=== PATIENT | female | born 1965 | race Caucasian/White ===

== ENCOUNTER 2016-08-30 17:39 | Inpatient (IN) | payer OTHER ==
[~2016-08-30] VITALS: Ht 142.2 cm; Wt 37.0 kg
[~2016-08-30 17:39] MED LIST: ACET-2047 PO; ADV10050 INH; ALPR0.25 PO; CALC200T PO; CIPR500T4 PO; DOCU-144 PO; FAMO20TA18 PO; FOLI-49 PO; HYDR-902 PO; IPRA3AMP INHALATION; LANT3I SC; LORA10TA3 PO; LYR75 PO; MEGE40TA17 PO; METO-448 PO; MONT10TA24 PO; ONDA-43 PO; PHEN-537 PO; SERT100T PO
[2016-08-30] MEDS ORDERED: SOD CHLORIDE 0.9% 500 ML IV STA (21:27)
[2016-08-30 21:45] VITALS: TEMP 97.6
[2016-08-30] MEDS ORDERED: morphine 4 MG/ML VIAL IV STA (21:52)
[2016-08-30] MEDS ORDERED: ONDANSETRON 4 MG INJ IV STA (21:52)
[2016-08-30 22:12] LABS: ADD SCAN DIFF NO
[2016-08-30 22:15] LABS: BASOPHIL # 0.1 10^3/ul (0.0-0.1); EOSINOPHILS # 0.2 10^3/ul (0.0-0.5); EOSINOPHILS % 2.5 % (0.0-7.0); HEMATOCRIT 31.5 % (37.0-47.0); LYMPHOCYTES # 2.1 10^3/ul (0.8-2.9); LYMPHOCYTES % 35.4 % (15.0-51.0); MEAN CORPUSCULAR HEMOGLOBIN 31.4 pg (29.0-33.0); MEAN CORPUSCULAR HGB CONC 34.9 g/dl (32.0-37.0); MEAN PLATELET VOLUME 9.4 fl (7.4-10.4); MONOCYTE # 0.6 10^3/ul (0.3-0.9); MONOCYTES % 10.3 % (0.0-11.0); NEUTROPHILS % 50.5 % (39.0-77.0); PLATELET COUNT 232 10^3/UL (140-415); RED CELL DISTRIBUTION WIDTH 12.2 % (11.5-14.5); RETICULOCYTE COUNT % 2.8 % (0.5-1.5); WHITE BLOOD COUNT 5.9 10^3/ul (4.8-10.8)
[2016-08-30 22:26] LABS: POTASSIUM 3.5 mmol/L (3.5-5.1)
[2016-08-30 22:28] LABS: CREATININE 1.03 mg/dl (0.44-1.00)
[2016-08-30 22:29] LABS: CALCIUM 9.5 mg/dl (8.4-10.2)
[2016-08-30 22:48] LABS: ADD UMIC YES; URINE BILIRUBIN (Dip) NEGATIVE (NEGATIVE); URINE BLOOD (Dip) 2+ (NEGATIVE); URINE KETONES (Dip) NEGATIVE (NEGATIVE); URINE LEUKOCYTE ESTERASE (Dip) 2+ (NEGATIVE); URINE NITRITE (Dip) NEGATIVE (NEGATIVE); URINE TOTAL PROTEIN (Dip) TRACE (NEGATIVE); URINE UROBILINOGEN (Dip) 0.2 E.U./dL (0.1-1.0)
[2016-08-30 22:55] LABS: URINE COLOR YELLOW (YELLOW)
[2016-08-30 23:04] LABS: IRON 57 ug/dl (35-150)
[2016-08-30 23:10] LABS: BACTERIA,URINE MANY; TRANSITIONAL EPI CELLS,URINE MODERATE
[2016-08-30 23:13] LABS: TOTAL IRON BINDING CAPACITY 263 ug/dl (241-421)
[2016-08-31] MEDS ORDERED: ONDANSETRON 4 MG INJ IV STA (00:25)
--- NOTE | 2016-08-31 01:30 | RADRPT ---
PROCEDURE: CT ABDOMEN/PELVIS WITHOUT CONTRAST CLINICAL INDICATION: 50-year-old female with abdominal pain and febrile. TECHNIQUE: The study was performed utilizing a GE [employer] VCT 64-slice CT scanner. Direct axia l sections were obtained through the abdomen and pelvis without the use of intravenous contrast mate rial. Sagittal and coronal reformations were obtained. One or more of the following dose reduction t echniques were utilized: automated exposure control, adjustment of the mA and/or kV according to pat ient's size or use of iterative reconstruction technique. The images were reviewed on a PACS workst [employer]. CTD/vol = 4.0 mGy; Total Exam DLP = 215.8 mGy-cm. COMPARISON: None. FINDINGS: Coronary artery calcifications are visualized. There is trace bibasilar subsegmental atelectasis. There is no evidence for significant pleural effusion. The liver has a normal size and contour with out focal areas of abnormal density. No intrahepatic nor extrahepatic biliary ductal dilatation is s een. The gallbladder demonstrates no wall thickening nor pericholecystic fluid. No biliary stones ar e evident. The pancreas is without areas of abnormal attenuation. The spleen is identified and has a normal size without abnormal density. The adrenal glands are unremarkable. The kidneys are without abnormal density. No hydroureteronephrosis nor nephroureterolithiasis is evident. The urinary bladd er contains urine. There is mild fecalization of the small bowel and focal dilatation. Mild retaine d stool is seen within the transverse colon. The appendix is visualized and is without abnormal thi ckening or surrounding inflammatory reaction. The uterus is unremarkable. The aortoiliac vessels are extensively calcified but without aneurysmal dilatation. The osseous structures are intact. IMPRESSION: 1. No CT evidence for obstructive uropathy or renal calculi. 2. Mild fecalization of the small bowel and focal dilatation without gross bowel obstruction. 3. No CT evidence for appendicitis. 4. Extensive vascular calcifications. .Josh Lyle MD, Date Time Electronically viewed and signed by .Josh Lyle MD, MD on 08/31/2016 01:29 .M/
[2016-08-31] MEDS ORDERED: CEFTRIAXONE 1 GM/50 ML (PMX) 50 ML IVPB ONE (02:00)
--- NOTE | 2016-08-31 02:02 | ERA ---
ER Documentation Chief Complaint Date/Time DATE: 08/31/16 TIME: 02:01 Chief Complaint GEBNERALIZED WEAKNESS X 1 WEEK; SENT FOR POSSIBLE BLOOD TRANS HPI This is a 50-year-old female with generalized weakness for 1 week. Sent for possible blood transfusion. Patient says she has been feeling weaker and has had urgency frequency urination. Patient has history of multiple pyelonephritis in the past ROS All systems reviewed and are negative except as per history of present illness. Medications Home Meds Active Scripts Metoprolol Tartrate* (Lopressor*) 25 Mg Tab, 12.5 MG PO BID, #60 TAB Prov:BARB WHITE MD 05/30/16 Phenazopyridine Hcl* (Pyridium*) 100 Mg Tab, 100 MG PO TID, #15 TAB Prov:BARB WHITE MD 05/30/16 Ciprofloxacin Hcl* (Ciprofloxacin Hcl*) 500 Mg Tablet, 500 MG PO BID, #14 TAB Prov:BARB WHITE MD 05/30/16 Salmeterol Xinaf-Fluticasone* (Advair*) 100/50 Diskus Inhaler, 1 INH INH BID for 30 Days Prov:DEJAN JEFFERSON 01/27/16 Montelukast Sodium* (Montelukast Sodium*) 10 Mg Tablet, 10 MG PO QHS for 30 Days , TAB Prov:DEJAN JEFFERSON 01/27/16 Insulin Glargine* (Lantus*) 100 Unit/Ml Soln, 17 UNIT SC QPM for 30 Days Prov:DEJAN JEFFERSON 01/27/16 Insulin Glargine* (Lantus*) 100 Unit/Ml Soln, 17 UNIT SC QAM for 30 Days Prov:DEJAN JEFFERSON 01/27/16 Ondansetron Hcl* (Zofran*) 4 Mg Tab, 4 MG PO Q4H Y for NAUSEA AND OR VOMITING, # 30 TAB Prov:DEJAN JEFFERSON 01/27/16 Docusate Sodium* (Colace*) 100 Mg Capsule, 100 MG PO BID Y for CONSTIPATION for 30 Days, #60 CAP Prov:URI GARRDIO S. 12/08/15 Calcium Carbonate* (Tums*) 500 Mg Tab.chew, 1000 MG PO Q4 Y for HEARTBURN for 30 Days, TAB.CHEW Prov:URI GARRIDO 12/08/15 Reported Medications Pregabalin* (Lyrica*) 75 Mg Capsule, 75 MG PO BID, CAP 05/29/16 Famotidine* (Famotidine*) 20 Mg Tablet, 20 MG PO DAILY, #30 TAB 05/29/16 Hydrocodone/Acetaminophen ([place] 10-325 Tablet) 1 Each Tablet, 1 EACH PO Q6 Y for PAIN, TAB 05/29/16 Sertraline Hcl* (Zoloft*) 100 Mg Tablet, 100 MG PO DAILY, #30 TAB 05/29/16 Megestrol Acetate* (Megestrol Acetate*) 40 Mg Tablet, 40 MG PO DAILY, TAB 05/29/16 Folic Acid* (Folic Acid*) 1 Mg Tablet, 1 MG PO DAILY, TAB 05/29/16 Alprazolam* (Xanax*) 0.25 Mg Tablet, 0.25 MG PO TID Y for ANXIETY, TAB 12/02/15 Ipratropium-Albuterol (Ipratropium-Albuterol) 0.5-3 Mg/3 Ml Ampul.neb, 3 ML INHALATION Q4 Y for SHORTNESS OF BREATH, #30 VIAL 12/02/15 Acetaminophen* (Acetaminophen*) 650 Mg Tablet, 650 MG PO Q4 Y for FEVER, #30 TAB 12/02/15 Loratadine* (Loratadine*) 10 Mg Tablet, 10 MG PO DAILY, #30 TAB 12/02/15 Allergies Allergies: Coded Allergies: No Known Allergy (Unverified , 12/18/15) PMhx/Soc History of Surgery: Yes (see note) Anesthesia Reaction: No Hx Neurological Disorder: No (neuropathy) Hx Respiratory Disorders: Yes (asthma) Hx Cardiac Disorders: Yes (irrigular heart rate) Hx Psychiatric Problems: Yes (Anxiety, depression) Hx Miscellaneous Medical Probl: Yes (see note) Hx Alcohol Use: No Hx Substance Use: No Hx Tobacco Use: No Smoking Status: Never smoker Physical Exam Vitals Vital Signs Date Time Temp Pulse Resp B/P Pulse Ox O2 Delivery O2 Flow Rate FiO2 08/30/16 21:45 97.6 103 20 151/86 100 Room Air 08/30/16 17:42 98.0 78 18 117/85 99 Physical Exam Const: [] Head: Atraumatic Eyes: Normal Conjunctiva ENT: Normal External Ears, Nose and Mouth. Neck: Full range of motion..~ No meningismus. Resp: Clear to auscultation bilaterally Cardio: Regular rate and rhythm, no murmurs Abd: Soft, non tender, non distended. Normal bowel sounds Skin: No petechiae or rashes Back: No midline or flank tenderness Ext: No cyanosis, or edema Neur: Awake and alert Psych: Normal Mood and Affect Result Diagram: 08/30/16214408/30/162144 Results 24 hrs Laboratory Tests Test 08/30/16 21:45 08/30/16 22:20 Absolute Reticulocyte Count 0.097X10^6 Anion Gap 19 Basophils # 0.110^3/ul Basophils % 1.0% Blood Urea Nitrogen 29mg/dl Calcium Level 9.5mg/dl Carbon Dioxide Level 25mmol/L Chloride Level 101mmol/L Creatinine 1.03mg/dl Eosinophils # 0.210^3/ul Eosinophils % 2.5% Ferritin 851.0ng/ml Glucose Level 242mg/dl Hematocrit 31.5% Hemoglobin 11.0g/dl Iron Level 57ug/dl Lactate Dehydrogenase 439IU/L Lymphocytes # 2.110^3/ul Lymphocytes % 35.4% Mean Corpuscular Hemoglobin 31.4pg Mean Corpuscular Hemoglobin Concent 34.9g/dl Mean Corpuscular Volume 90.0fl Mean Platelet Volume 9.4fl Monocytes # 0.610^3/ul Monocytes % 10.3% Neutrophils # 3.010^3/ul Neutrophils % 50.5% Nucleated Red Blood Cells # 0.010^3/ul Nucleated Red Blood Cells % 0.0/100WBC Percent Iron Saturation 22% SAT Percent Reticulocyte Count 2.8% Platelet Count 81201^3/UL Potassium Level 3.5mmol/L Red Blood Count 3.5010^6/ul Red Cell Distribution Width 12.2% Sodium Level 141mmol/L Total Iron Binding Capacity 263ug/dl White Blood Count 5.910^3/ul Urine Bacteria MANY Urine Bilirubin NEGATIVE Urine Clarity CLOUDY Urine Color YELLOW Urine Glucose 0.5%% Urine Hemoglobin 2+ Urine Ketones NEGATIVE Urine Leukocyte Esterase 2+ Urine Microscopic RBC 2-5/HPF Urine Microscopic WBC >200/HPF Urine Nitrite NEGATIVE Urine Specific [place] 1.020 Urine Total Protein TRACE Urine Transitional Epithelial Cells MODERATE Urine Urobilinogen 0.2 E.U./dL Urine Yeast MANY Urine pH 5.5 Current Medications Medications (Trade) Dose Ordered Sig/Muna Route PRN Reason Start Time Stop Time Status Last Admin Dose Admin Sodium Chloride (NS) 500 ml @ 500 mls/hr Q1H STAT IV 08/30/16 21:27 08/30/16 22:26 DC 08/30/16 21:53 Morphine Sulfate (morphine) 4 mg ONCE STAT IV 08/30/16 21:52 08/30/16 22:05 DC 08/30/16 22:13 Ondansetron HCl (Zofran Inj) 4 mg ONCE STAT IV 08/30/16 21:52 08/30/16 22:08 DC 08/30/16 22:12 Ondansetron HCl 4 mg 4 mg ONCE STAT IV 08/31/16 00:25 08/31/16 00:27 DC 08/31/16 00:33 Ceftriaxone Sodium (Rocephin) 50 ml @ 100 mls/hr ONCE ONCE IVPB 08/31/16 02:00 08/31/16 02:29 Procedures/MDM EKG: Rate/Rhythm: Normal Sinus Rhythm QRS, ST, T-waves: No changes consistent w/ acute ischemia Impression: No evidence of ischemia or arrhythmia Chest X-ray 1V Interpreted by me: Soft Tissue: No acute abnormalities Bones: No acute abnormalities Mediastinum/Cardiac Silhouette/Lungs: No acute abnormalities Medical decision-making: This is a very pleasant female looks to be early pyelonephritis. Given her multiple comorbidities, patient will be admitted for intravenous antibiotics to the hospitalist. Departure Diagnosis: Primary Impression: Acute weakness Additional Impression: Acute pyelonephritis Condition: Serious COREY CARMallory Aug 31, 2016 02:02
[2016-08-31 03:00] VITALS: BP 141/78; PULSE 105; RESP 18
[2016-08-31 03:17] VITALS: Ht 142.2 cm; Wt 37.0 kg
[2016-08-31] MEDS ORDERED: ONDANSETRON 4 MG INJ IV PRN ×2 (03:30→10:00)
[2016-08-31] MEDS ORDERED: ALPRAZOLAM 0.25 MG TAB PO PRN (03:30)
[2016-08-31] MEDS ORDERED: NITROGLYCERIN (SL) 0.4 MG TAB SL PRN (03:30)
[2016-08-31] MEDS ORDERED: ACETAMINOPHEN 325 MG TAB PO PRN ×2 (03:30)
[2016-08-31] MEDS ORDERED: CALCIUM CARBONATE 500 MG CHEW TAB PO PRN (03:30)
[2016-08-31] MEDS ORDERED: MAGNESIUM HYDROXIDE 30ML CUP PO PRN (03:30)
[2016-08-31] MEDS ORDERED: DEXTROSE 50% 50 ML SYRINGE IV PRN ×2 (03:30)
[2016-08-31] MEDS ORDERED: GLUCAGON 1 MG INJ IM PRN (03:30)
[2016-08-31] MEDS ORDERED: NACL 0.9% 3 ML SYG IV SCH (03:30)
[2016-08-31] MEDS ORDERED: hydrALAzine 20 MG INJ IV PRN (03:30)
[2016-08-31] MEDS ORDERED: morphine 2 MG INJ IV PRN (03:30)
[2016-08-31] MEDS ORDERED: ALBUTEROL/IPRATROPIUM (NEB) 3 ML AMP HHN PRN (03:30)
[2016-08-31] MEDS ORDERED: DOCUSATE SODIUM 100 MG CAP PO PRN (03:30)
[2016-08-31] MEDS ORDERED: GLUCOSE GEL 15 GRAM TUBE BUCCAL PRN (03:30)
[2016-08-31] MEDS ORDERED: NA PHOSPHATE/BIPHOS 133 ML ENEMA PR PRN (03:30)
[2016-08-31] MEDS ORDERED: HYDROCODONE/APAP (5/325) TAB PO PRN (03:30)
[2016-08-31] MEDS ORDERED: LORAZEPAM 2 MG INJ IV PRN (03:30)
[2016-08-31] MEDS ORDERED: GLUCOSE GEL 15 GRAM TUBE PO PRN ×2 (03:30)
[2016-08-31] MEDS: SOD CHLORIDE 0.9% 1,000 ML IV SCH ×3 (03:47→23:01)
[2016-08-31] MEDS: FLUCONAZOLE 100 MG/NS (PMX) 50 ML IVPB SCH (03:53)
[2016-08-31] MEDS: HYDROCODONE/APAP (5/325) TAB PO PRN (03:53)
[2016-08-31] MEDS ORDERED: INSULIN ASPART [NOVOLOG] 3 ML PEN SC SCH ×2 (05:00→07:20)
--- NOTE | 2016-08-31 05:30 | HP ---
DATE OF ADMISSION: 08/31/2016 IDENTIFICATION: A 50-year-old female. CHIEF COMPLAINT: Generalized weakness x1 week. HISTORY OF PRESENT ILLNESS: A 50-year-old female with past medical history of breast cancer status post lumpectomy in the past, hypertension, type 2 diabetes, asthma, diabetic neuropathy, anorexia an d anxiety and depression who has been having weakness for about 1 week sort of generalized in nature . She has also had urinary frequency and urgency as well. The patient has had multiple UTIs in the past as well. Apparently, she was prescribed antibiotics as an outpatient to treat the UTI, but th e symptoms have not improved, so she decided to come in. No upper or lower GI bleeding, no chest pa in and no shortness of breath. When she came in today to the ER, she had a UA performed that showed 2+ leukocyte esterase positive and many bacteria, and a CT abdomen and pelvis was performed that sh owed no obstructive uropathy or renal calculi and no evidence of any appendicitis. PAST MEDICAL HISTORY: As stated above. ALLERGIES: NO KNOWN DRUG ALLERGIES. HOME MEDICATIONS: 1. Loratadine 10 mg daily. 2. Ciprofloxacin 500 mg b.i.d. 3. Megace 40 mg daily. 4. Ipratropium/albuterol inhaled q.4 hours p.r.n. 5. Lopressor 12.5 mg b.i.d. 6. Tylenol 650 q.4 hours p.r.n. 7. Xanax 0.25 mg t.i.d. p.r.n. 8. [place] 10/325 q. 6 p.r.n. 9. Lyrica 75 mg b.i.d. 10. Zoloft 100 mg daily. 11. Singulair 10 mg at bedtime. 12. Advair 100/50 inhaled b.i.d. 13. Tums 100 mg q.4 hours p.r.n. 14. Colace 100 mg b.i.d. p.r.n. 15. Famotidine 20 mg daily. 16. Zofran 4 mg q.4 p.r.n. 17. Lantus 17 units in the morning and 17 units at night. 18. Pyridium 100 mg t.i.d. 19. Folic acid 1 mg daily. PAST SURGICAL HISTORY: Lumpectomy in the past for breast cancer, in the past, a right marisol lux amputation in the past, laser surgery for her eyes in the past. SOCIAL HISTORY: No smoking, drinking, or IV drug abuse. FAMILY HISTORY: Noncontributory. PHYSICAL EXAMINATION: VITAL SIGNS: Today, T-max 98.0, pulse 78 to 103, respirations 18 to 21, blood pressure 117 to 151 s ystolic over 85 to 86 diastolic, saturating 100% on room air. GENERAL: The patient is lying in bed, in no acute distress. HEENT: Pupils equal, round, react to light. Extraocular muscles intact. NECK: Supple, no thyromegaly. LUNGS: Clear to auscultation bilaterally. CARDIOVASCULAR: S1, S2 heard. No rubs or gallops. ABDOMEN: Soft, nontender, nondistended. Normal bowel sounds. No rebound or guarding. MUSCULOSKELETAL: No lower extremity edema bilaterally. NEUROLOGIC: No focal deficits. LABORATORIES: CBC is normal. The sodium 141, potassium 3.4, chloride 101, CO2 of 25, BUN 29, creat inine 1.03, glucose 242. Ferritin is [address] abdomen and pelvis results. ASSESSMENT AND PLAN: A 50-year-old female coming in with generalized weakness with signs of urinary tract infection and pyelonephritis. 1. Generalized weakness most likely secondary to urinary tract infection and pyelonephritis. Lookliliya locke back at the records in May 2016, she had Sissy glabrata urinary tract infection at that [place] and back in December 2015, she had a history of Proteus multidrug resistant urinary tract infection a t that time, so will admit her to med/surg floor, put her on broad spectrum antibiotics including an tifungal and Zosyn. Based on the prior sensitivities, we will consider getting infectious disease c onsult as well. 2. History of breast cancer, no present issues. Continue to monitor for now. 3. History of asthma. She is on DuoNeb p.r.n. No signs of any shortness of breath. 4. History of type 2 diabetes. Continue Lantus and sliding scale insulin. Check A1c. 5. History of hypertension. Blood pressure stable. Continue current medications. Also, check a T SH and lipid panel. 6. History of anxiety and depression. She is on Ativan p.r.n. 7. Gastrointestinal prophylaxis. She is on famotidine. 8. Deep venous thrombus prophylaxis, heparin subQ. Dictated By: URI GODDARD Conf#: [id number] DID#: [id number]
[2016-08-31] MEDS: PIPER-TAZO 3.375 GM IV (PMX) 100 ML IVPB SCH ×4 (06:15→23:24)
[2016-08-31 07:59] VITALS: BP 99/53; RESP 16
[2016-08-31] MEDS: METOPROLOL 25 MG TAB PO SCH ×2 (09:00→21:22)
[2016-08-31] MEDS: PREGABALIN 75 MG CAP PO SCH ×2 (09:00→21:21)
[2016-08-31] MEDS: SALMETEROL/FLUTICASONE 100/50 INHA INH SCH ×2 (09:00→21:21)
[2016-08-31] MEDS: Insulin NOVOLOG SS MILD Algorithm (SS with meals and bedtime) SC SCH ×4 (09:09→21:00)
[2016-08-31] MEDS: INSULIN GLARGINE [LANtus] 3 ML PEN SC SCH (09:10)
[2016-08-31] MEDS: HEPARIN 5,000 UNIT/0.5 ML SYG SC SCH ×2 (09:11→21:27)
[2016-08-31 10:06] LABS: ADD UMIC YES; URINE BILIRUBIN (Dip) NEGATIVE (NEGATIVE); URINE BLOOD (Dip) 1+ (NEGATIVE); URINE COLOR LT. YELLOW (YELLOW); URINE GLUCOSE (Dip) NEGATIVE (NEGATIVE); URINE KETONES (Dip) NEGATIVE (NEGATIVE); URINE LEUKOCYTE ESTERASE (Dip) 3+ (NEGATIVE); URINE NITRITE (Dip) NEGATIVE (NEGATIVE); URINE TOTAL PROTEIN (Dip) TRACE (NEGATIVE); URINE UROBILINOGEN (Dip) 0.2 E.U./dL (0.1-1.0)
[2016-08-31 10:36] LABS: SQUAMOUS EPITHELIAL CELL,UR FEW
--- NOTE | 2016-08-31 12:10 | PN ---
Date/Time of Note Date/Time of Note DATE: 08/31/16 TIME: 12:06 Assessment/Plan VTE Prophylaxis VTE Prophylaxis Intervention: SCD's Lines/Catheters [facility] Peripheral IV Urinary Cath still in place: No Assessment/Plan Chief Complaint/Hosp Course ASSESSMENT AND PLAN: 1. Pyelonephritis. with history of Sissy glabrata and Proteus multidrug resistant urinary tract infection continue broad spectrum antibiotics including antifungal and Zosyn. Based on the prior sensitivities, we will consider getting infectious disease consult as well. 2. History of breast cancer, no present issues. Continue to monitor for now. Patient is scheduled to follow up with oncology as outpatient 3. History of asthma. She is on DuoNeb p.r.n. No signs of any shortness of breath. 4. History of type 2 diabetes. Continue Lantus and sliding scale insulin. Low -carb diet 5. History of hypertension. Blood pressure stable. Continue current medications. 6. History of anxiety and depression. She is on Ativan p.r.n. 7. Gastrointestinal prophylaxis. She is on famotidine. 8. Deep venous thrombus prophylaxis, heparin subQ. We will continue monitor patient closely for recommendation management treatment as clinical course Problems: Subjective 24 Hr Interval Summary Free Text/Dictation Patient continues to complain of having right flank pain Denies of any chest pain or shortness of breath Tolerating oral intake Exam/Review of Systems Vital Signs Vitals Vital Signs Date Time Temp Pulse Resp B/P Pulse Ox O2 Delivery O2 Flow Rate FiO2 08/31/16 07:59 98.0 85 16 99/53 97 08/31/16 03:00 Room Air Intake and Output 08/30/16 08/30/16 08/31/16 15:00 23:00 07:00 Intake Total 300 ml Output Total 300 ml Balance 0 ml Exam General: The patient is well-developed, Not in acute distress. HEENT: Atraumatic, normocephalic. The pupils are equal and round . Neck: Supple with full range of motion. Chest: Normal expansion of the thorax during inspiration Lungs: Clear to auscultation bilaterally Heart: Normal S1-S2, Regular rhythm and rate. Abdomen: Soft , right flank pain, nondistended , bowel sounds are present. Extremities: Normal to inspection, no edema no cyanosis, status post right foot first toe amputation (chronic) Neurologic: Normal mental status,The patient is awake, alert and oriented . Results Result Diagram: 08/30/16214408/30/162144 Results 24 hrs Laboratory Tests Test 08/30/16 21:45 08/30/16 22:20 08/31/16 04:30 08/31/16 04:31 Absolute Reticulocyte Count 0.097 Anion Gap 19 H Basophils # 0.1 Basophils % 1.0 Blood Urea Nitrogen 29 H Calcium Level 9.5 Carbon Dioxide Level 25 Chloride Level 101 Creatinine 1.03 H Eosinophils # 0.2 Eosinophils % 2.5 Ferritin 851.0 H Glucose Level 242 H Hematocrit 31.5 L Hemoglobin 11.0 L Iron Level 57 Lactate Dehydrogenase 439 Lymphocytes # 2.1 Lymphocytes % 35.4 Mean Corpuscular Hemoglobin 31.4 Mean Corpuscular Hemoglobin Concent 34.9 Mean Corpuscular Volume 90.0 Mean Platelet Volume 9.4 Monocytes # 0.6 Monocytes % 10.3 Neutrophils # 3.0 Neutrophils % 50.5 Nucleated Red Blood Cells # 0.0 Nucleated Red Blood Cells % 0.0 Percent Iron Saturation 22 Percent Reticulocyte Count 2.8 H Platelet Count 232 Potassium Level 3.5 Red Blood Count 3.50 L Red Cell Distribution Width 12.2 Sodium Level 141 Total Iron Binding Capacity 263 White Blood Count 5.9 # Urine Bacteria MANY Urine Bilirubin NEGATIVE Urine Clarity CLOUDY Urine Color YELLOW Urine Glucose 0.5% H Urine Hemoglobin 2+ H Urine Ketones NEGATIVE Urine Leukocyte Esterase 2+ H Urine Microscopic RBC 2-5 Urine Microscopic WBC >200 Urine Nitrite NEGATIVE Urine Specific [place] 1.020 Urine Total Protein TRACE Urine Transitional Epithelial Cells MODERATE Urine Urobilinogen 0.2 E.U./dL Urine Yeast MANY Urine pH 5.5 Bedside Glucose 186 Free Thyroxine 1.23 Test 08/31/16 07:05 08/31/16 08:43 Urine Bilirubin NEGATIVE Urine Clarity CLEAR Urine Color LT. YELLOW Urine Glucose NEGATIVE Urine Hemoglobin 1+ H Urine Ketones NEGATIVE Urine Leukocyte Esterase 3+ H Urine Microscopic RBC 2-5 Urine Microscopic WBC 25-50 Urine Nitrite NEGATIVE Urine Specific [place] 1.015 Urine Squamous Epithelial Cells FEW Urine Total Protein TRACE Urine Urobilinogen 0.2 E.U./dL Urine Yeast MODERATE Urine pH 5.5 Bedside Glucose 144 Medications Medications Current Medications Ondansetron HCl (Zofran Inj) 4 mg Q6H PRN IV NAUSEA AND/OR VOMITING; Start at 03:30 Acetaminophen (Tylenol Tab) 650 mg Q6H PRN PO PAIN LEVEL 1-3 OR FEVER; Start at 03:30 Acetaminophen/ Hydrocodone Bitart ([place] (5/325)) 1 tab Q6H PRN PO MODERATE PAIN LEVEL 4-6 Last administered on 08/31/16 03:53; Admin Dose 1 TAB; Start at 03:30 Acetaminophen/ Hydrocodone Bitart ([place] (5/325)) 2 tab Q6H PRN PO SEVERE PAIN LEVEL 7-10; Start 08/31/16 at 03:30 Morphine Sulfate (morphine) 2 mg Q4H PRN IV SEVERE PAIN LEVEL 7-10; Start 08/31 at 03:30 Docusate Sodium (Colace) 100 mg Q12H PRN PO CONSTIPATION; Start 08/31/16 at 03: 30 Magnesium Hydroxide (Milk Of Mag) 30 ml DAILY PRN PO CONSTIPATION; Start at 03:30 Sodium Biphosphate/ Sodium Phosphate (Fleet Enema) 133 ml DAILY PRN ID CONSTIPATION; Start 08/31/16 at 03:30 Heparin Sodium (Porcine) (Heparin (5000 Units/0.5 ml)) 5,000 unit Q12 SC Last administered on 08/31/16 09:11; Admin Dose 5,000 UNIT; Start 08/31/16 at 09:00 Lorazepam 0.5 mg 0.5 mg Q6H PRN IV ANXIETY; Start 08/31/16 at 03:30 Sodium Chloride 1,000 ml @ 100 mls/hr Q10H IV Last administered on 08/31/16 03:47; Admin Dose 100 MLS/HR; Start 08/31/16 at 03:01 Piperacillin Sod/ Tazobactam Sod (Zosyn 3.375gm/ 100 ml (Pmx)) 100 ml @ 200 mls /hr Q6 IVPB Last administered on 08/31/16 06:15; Admin Dose 200 MLS/HR; Start 08/31/16 at 06:00 Hydralazine HCl (Apresoline) 10 mg Q6H PRN IV ELEVATED BLOOD PRESSURE; Start at 03:30 Clonidine (Catapres) 0.1 mg Q6H PRN PO ELEVATED BLOOD PRESSURE; Start 08/31/16 at 03:30 Nitroglycerin (Nitroglycerin (Sl Tab) 0.4 Mg) 1 tab Q5M PRN SL ANGINA; Start at 03:30 Acetaminophen (Tylenol Tab) 650 mg Q4 PRN PO FEVER; Start 08/31/16 at 03:30 Alprazolam (Xanax) 0.25 mg TID PRN PO ANXIETY; Start 08/31/16 at 03:30 Calcium Carbonate (Tums) 1,000 mg Q4 PRN PO HEARTBURN; Start 08/31/16 at 03:30 Famotidine (Pepcid) 20 mg DAILY PO ; Start 08/31/16 at 09:00 Folic Acid (Folic Acid) 1 mg DAILY PO ; Start 08/31/16 at 09:00 Insulin Glargine (Lantus) 17 unit QAM SC Last administered on 08/31/16 09:10; Admin Dose 17 UNIT; Start 08/31/16 at 09:00 Insulin Glargine (Lantus) 17 unit QPM SC ; Start 08/31/16 at 21:00 Loratadine (Claritin) 10 mg DAILY PO ; Start 08/31/16 at 09:00 Megestrol Acetate (Megace) 40 mg DAILY PO ; Start 08/31/16 at 09:00 Metoprolol Tartrate (Lopressor) 12.5 mg BID PO ; Start 08/31/16 at 09:00 Montelukast Sodium (Singulair) 10 mg QHS PO ; Start 08/31/16 at 21:00 Phenazopyridine HCl (Pyridium) 100 mg TID PO ; Start 08/31/16 at 09:00 Pregabalin (Lyrica) 75 mg BID PO ; Start 08/31/16 at 09:00 Salmeterol Xinafoate/ Fluticasone (Advair 100/50 Diskus) 1 inh BID INH ; Start 08/31/16 at 09:00 Sertraline HCl 100 mg 100 mg DAILY PO ; Start 08/31/16 at 09:00 Fluconazole/ Sodium Chloride (Diflucan 100 Mg/ NS (Pmx)) 50 ml @ 50 mls/hr Q24H IVPB Last administered on 08/31/16 03:53; Admin Dose 50 MLS/HR; Start at 03:30 Miscellaneous Information 1 ea NOTE XX ; Start 08/31/16 at 03:30 Glucose (Glutose) 15 gm Q15M PRN PO DECREASED GLUCOSE; Start 08/31/16 at 03:30 Glucose (Glutose) 22.5 gm Q15M PRN PO DECREASED GLUCOSE; Start 08/31/16 at 03: 30 Dextrose (D50w Syringe) 25 ml Q15M PRN IV DECREASED GLUCOSE; Start 08/31/16 at 03:30 Dextrose (D50w Syringe) 50 ml Q15M PRN IV DECREASED GLUCOSE; Start 08/31/16 at 03:30 Glucagon (Glucagen) 1 mg Q15M PRN IM DECREASED GLUCOSE; Start 08/31/16 at 03:30 Glucose (Glutose) 15 gm Q15M PRN BUCCAL DECREASED GLUCOSE; Start 08/31/16 at 03 :30 Diagnostic Test (Pha) (Accucheck) 1 ea 02 XX ; Start 09/01/16 at 02:00 Ondansetron HCl (Zofran Inj) 4 mg Q4H PRN IV NAUSEA AND/OR VOMITING; Start at 10:00 BARB WHITE MD Aug 31, 2016 12:10
[2016-08-31] MEDS: LORATADINE 10 MG TAB PO SCH (12:14)
[2016-08-31] MEDS: FOLIC ACID 1 MG TAB PO SCH (12:14)
[2016-08-31] MEDS: MEGESTROL 40 MG TAB PO SCH (12:15)
[2016-08-31] MEDS: FAMOTIDINE 20 MG TAB PO SCH (12:16)
[2016-08-31] MEDS: SERTRALINE 100 MG TAB PO SCH (12:16)
[2016-08-31] MEDS: PHENAZOPYRIDINE 100 MG TAB PO SCH ×3 (12:16→21:21)
[2016-08-31 20:27] VITALS: BP 130/60
[2016-08-31] MEDS ORDERED: INSULIN GLARGINE [LANtus] 3 ML PEN SC SCH (21:00)
[2016-08-31] MEDS ORDERED: MONTELUKAST 10 MG TAB PO SCH (21:00)
[2016-09-01] MEDS ORDERED: ACCUCHECK AT 2AM (Patients on SS coverage) XX SCH (02:00)
[2016-09-01] MEDS: FLUCONAZOLE 100 MG/NS (PMX) 50 ML IVPB SCH (03:06)
[2016-09-01] MEDS: HYDROCODONE/APAP (5/325) TAB PO PRN ×2 (03:11→18:12)
[2016-09-01] MEDS: SOD CHLORIDE 0.9% 1,000 ML IV SCH (05:48)
[2016-09-01] MEDS: PIPER-TAZO 3.375 GM IV (PMX) 100 ML IVPB SCH ×2 (05:48→12:13)
[2016-09-01 06:23] LABS: ADD SCAN DIFF NO
[2016-09-01 07:02] LABS: THYROID STIMULATING HORMONE 0.198 MIU/L (0.465-4.680)
[2016-09-01 07:39] LABS: POTASSIUM 3.7 mmol/L (3.5-5.1)
[2016-09-01 07:42] LABS: CREATININE 0.91 mg/dl (0.44-1.00)
[2016-09-01 07:43] LABS: MAGNESIUM 1.2 mg/dl (1.7-2.5); PHOSPHORUS 3.1 mg/dl (2.5-4.9)
--- NOTE | 2016-09-01 07:57 | CONS ---
DATE OF ADMISSION: 08/31/2016 DATE OF CONSULTATION: 08/31/2016 TYPE OF CONSULTATION: Infectious Disease. REASON FOR CONSULTATION: Antibiotic management. HISTORY OF PRESENT ILLNESS: Nicole Marcial is a 50-year-old female who comes in with generalized weakne ss for 1 week. Her past problems include: 1. History of breast cancer status post lumpectomy in the past. 2. Hypertension. 3. Adult-onset diabetes mellitus. 4. Asthma. 5. Diabetic neuropathy. 6. Anorexia. 7. Anxiety and depression. The patient has had weakness for about 1 week. She has noted urinary f requency and urgency. She has a history of multiple UTIs in the past. She was prescribed antibioti cs as an outpatient to treat the UTI but she did not improve. She had a 2+ leukocyte esterase posit jaswant, many bacteria in her urine in the emergency room. A CT scan of the abdomen and pelvis showed n o obstructive uropathy or renal calculi and no evidence of appendicitis. PAST SURGICAL HISTORY: Lumpectomy, , right hallux amputation in the past and laser surgery for her eyes. FAMILY HISTORY: Noncontributory. SOCIAL HISTORY: She does not smoke, drink or abuse drugs. ALLERGIES: PENICILLIN, SULFA OR FOODS. MEDICATIONS: Per chart. REVIEW OF SYSTEMS: As per HPI. PHYSICAL EXAMINATION: GENERAL: The patient is a well-developed, well-nourished female who is alert, responsive, in no acu te distress. VITAL SIGNS: Stable. She is afebrile. SKIN: Without generalized rash. HEENT: Within normal limits. NECK: Supple. LYMPH NODES: None palpable. CHEST: Decreased breath sounds at the bases. HEART: Without murmur or gallop. ABDOMEN: Soft, nontender, without organosplenomegaly or masses. EXTREMITIES: Without cyanosis, clubbing, or edema. RECTAL AND GENITAL: Deferred. NEUROLOGIC: No focal neurological abnormalities. ANCILLARY LABORATORY DATA: Her BUN and creatinine was 29/1.03. White count was 5.9, H and H 11 and 31.5, platelet count 232,000 with 50% polys. BUN and creatinine 29/1.03. Urine is negative for ni trite, 2+ leukocyte esterase, greater than 200 white cells per high powered field. Urine culture is negative after 24 hours. IMPRESSION AND PLAN: The patient was begun on Zosyn 3.375 grams IV piggyback q.6. My impression is that the patient has probable pyelonephritis. I am surprised that her urine is not growing out any thing. I think that Zosyn is a good choice at this point. I do not see any blood cultures, but the patient is already on antibiotics for a significant amount of time. We will observe her white coun t and her temperature, which at this point is normal at 98.1. I will dictate my findings to the hos pitalist. I want to thank them for asking me to see this denise lady in consultation. Dictated By: EDGARDO MAJANO MD, JD/MATA Conf#: [id number] DID#: [id number] CC: URI GARRIDO;*EndCC*
[2016-09-01 08:02] LABS: BASOPHIL # 0.1 10^3/ul (0.0-0.1); EOSINOPHILS # 0.1 10^3/ul (0.0-0.5); EOSINOPHILS % 2.3 % (0.0-7.0); HEMATOCRIT 26.3 % (37.0-47.0); HEMOGLOBIN 8.8 g/dl (12.0-16.0); LYMPHOCYTES # 1.8 10^3/ul (0.8-2.9); LYMPHOCYTES % 34.4 % (15.0-51.0); MEAN CORPUSCULAR HEMOGLOBIN 30.7 pg (29.0-33.0); MEAN CORPUSCULAR HGB CONC 33.5 g/dl (32.0-37.0); MEAN CORPUSCULAR VOLUME 91.6 fl (82.0-101.0); MEAN PLATELET VOLUME 10.3 fl (7.4-10.4); MONOCYTE # 0.6 10^3/ul (0.3-0.9); MONOCYTES % 10.9 % (0.0-11.0); NEUTROPHIL # 2.6 10^3/ul (1.6-7.5); PLATELET COUNT 179 10^3/UL (140-415); RED BLOOD COUNT 2.87 10^6/ul (4.20-5.40); RED CELL DISTRIBUTION WIDTH 12.5 % (11.5-14.5); WHITE BLOOD COUNT 5.1 10^3/ul (4.8-10.8)
[2016-09-01 08:04] VITALS: BP 120/61; RESP 18
[2016-09-01] MEDS: SALMETEROL/FLUTICASONE 100/50 INHA INH SCH (08:47)
[2016-09-01] MEDS: LORATADINE 10 MG TAB PO SCH (08:48)
[2016-09-01] MEDS: FOLIC ACID 1 MG TAB PO SCH (08:48)
[2016-09-01] MEDS: METOPROLOL 25 MG TAB PO SCH (08:49)
[2016-09-01] MEDS: PHENAZOPYRIDINE 100 MG TAB PO SCH ×2 (08:50→12:12)
[2016-09-01] MEDS: FAMOTIDINE 20 MG TAB PO SCH (08:50)
[2016-09-01] MEDS: MEGESTROL 40 MG TAB PO SCH (08:50)
[2016-09-01] MEDS: SERTRALINE 100 MG TAB PO SCH (08:51)
[2016-09-01] MEDS: Insulin NOVOLOG SS MILD Algorithm (SS with meals and bedtime) SC SCH ×3 (08:53→17:21)
[2016-09-01] MEDS: INSULIN GLARGINE [LANtus] 3 ML PEN SC SCH (08:54)
[2016-09-01] MEDS: HEPARIN 5,000 UNIT/0.5 ML SYG SC SCH (08:55)
[2016-09-01] MEDS: PREGABALIN 75 MG CAP PO SCH (09:00)
--- NOTE | 2016-09-01 11:48 | PDOCDIS ---
Discharge Instructions CONDITION Patient Condition: Good HOME CARE INSTRUCTIONS: Special Diet: Low carb ACTIVITY: Activity Restrictions: No Restrictions FOLLOW UP/APPOINTMENTS Appointments Follow up with PCP in one week BARB WHITE MD Sep 01, 2016 11:48
[2016-09-01] MEDS ORDERED: CEPH500C PO (11:51)
[2016-09-01] MEDS ORDERED: PHEN-537 PO (11:51)
[2016-09-01] MEDS ORDERED: MAGNESIUM SULFATE 4 GM/100 ML 100 ML IVPB ONE (13:00)
[2016-09-01] MEDS ORDERED: VORICONAZOLE 200 MG TAB PO SCH (14:00)
--- NOTE | 2016-09-01 14:11 | PN ---
DATE: 09/01/2016 SUBJECTIVE: The patient is alert, still has bilateral flank pain and discomfort with urination. No fevers. LABORATORY DATA: WBC 5.1, no shift, no bands. BUN 12, creatinine 0.91. MICROBIOLOGY: Urine culture growing yeast. ANTIMICROBIALS: The patient is on Zosyn. PHYSICAL EXAMINATION: GENERAL: Cachectic, middle-aged woman who is alert, in no distress. HEENT: Head atraumatic, normocephalic. Sclerae anicteric. Buccal mucosa pink. NECK: Supple. CHEST: Rise symmetrical. Breath sounds clear. HEART: S1, S2. ABDOMEN: Soft, bowel sounds present. EXTREMITIES: Without cyanosis. ASSESSMENT: 1. Acute on chronic pyelonephritis with a history of Sissy glabrata back in May that she gre w from her urine. Repeat urine culture growing yeast. 2. Diabetes. 3. Diabetic neuropathy. 4. Hypertension. 5. History of breast cancer. PLAN: The patient remains stable. We are going to change antibiotics to voriconazole and treat her with 2 weeks of oral voriconazole for Sissy glabrata. Dictated By: PETERSON ALVAREZ FINISH SANDER for EDGARDO MAJANO MD NI/NTS Conf#: [id number] DID#: [id number]
--- NOTE | 2016-09-01 14:26 | DS ---
DATE OF ADMISSION: 08/31/2016 DATE OF DISCHARGE: 09/01/2016 CONSULTANTS: Infectious disease. DIAGNOSES 1. Urinary tract infection. Patient will be discharged on Keflex and Pyridium. 2. Diabetes mellitus. Continue Lantus, low carb diet. 3. Anxiety. Continue Xanax. 4. Gastroesophageal reflux disease. Continue PPI. 5. Chronic obstructive pulmonary disease. Continue Combivent. 6. Essential hypertension. Continue metoprolol. 7. Neuropathy. Continue Lyrica. 8. Major depression. Continue Zoloft. MEDICATIONS: 1. Keflex. 2. Tylenol. 3. Xanax. 4. Tums. 5. Colace. 6. Pepcid 7. Folic acid. 8. [place]. 9. Lantus. 10. Combivent. 11. Loratadine. 12. Megace. 13. Metoprolol. 14. Singular. 14. Zofran. 15. Pyridium. 16. Lyrica. 17. Advair. 18. Zoloft. ALLERGIES: NO KNOWN DRUG ALLERGIES. DISPOSITION: Home. DIET: Low carbohydrates diet. ACTIVITY: As tolerated. IMAGING: Abdominal x-ray showed no CT evidence for obstructive uropathy or renal calculi. Mildly f ecalization of the small bowel and focal dilation without gross bowel obstruction. No CT evidence o f appendicitis. Extensive vascular calcifications. LABORATORIES: Sodium 141, potassium 3.7, chloride 109, bicarbonate 22, BUN 12, creatinine 0.91, glu cose 145, calcium 8.0, phosphorus 3.1, magnesium 1.2, which was repleted. Triglyceride 129, total c holesterol 104, LDL 44, HDL 34. WBC 5.1, hemoglobin 8.8, hematocrit 26.3, platelets 179. HOSPITAL COURSE: This is a 51-year-old female with past medical history of breast cancer status pos t lumpectomy in the past, hypertension, diabetes mellitus type 2, diabetic neuropathy, gastroparesis , asthma, diabetic with vascular manifestation, COPD, anorexia, anxiety, depression, who has been gonzalez ving weakness x1 week, generalized in nature. She also has urinary frequency and urgency as well. Patient had multiple UTIs in the past. She presented to [facility] ER where her urinalysis was positive for 2 leukocyte esterase, red blood cells 2 to 5, WBC greater than 200, bacteria many, yeast many, glucose 0.5%. The patient was started on IV fluids and Zosyn. Urine culture was found to be negative with no growth x24 hours. Infectious disease doctor was consulted. Patient remaine d afebrile. WBC was within normal limits. After aggressive IV fluid, the patient's abdominal disco mfort has been improving significantly. Patient's glucose at the time of admission was 186. The CT abdomen showed some calcification and extensive vascular calcification This is likely secondary to patient's history of diabetes mellitus and is causing the gastroparesis and the abdominal discomfort . At this time, patient is medically stable to be discharged home. Her urinary discomfort has impr waylon significantly. She denies any urinary hesitancy, dysuria, hematuria or any other discomfort. Patient has been able to tolerate her oral intake without any difficulty. CONDITION AT TIME OF DISCHARGE: Stable. Dictated By: BARB MATSON/NTS Conf#: [id number] DID#: [id number]
== END 2016-09-01 18:40 | disposition home or self-care (01) | DRG 690 ==
LOC: E/R 17:39 → MS1 08-31 01:42
PROVIDERS: ADMIT Hospitalist; ATTEND Hospitalist
DX: N10 Acute pyelonephritis (principal); E11.51 Type 2 diabetes mellitus with diabetic peripheral angiopathy without gangrene; K31.84 Gastroparesis; E11.40 Type 2 diabetes mellitus with diabetic neuropathy, unspecified; R63.0 Anorexia; J44.9 Chronic obstructive pulmonary disease, unspecified; Z68.1 Body mass index [BMI] 19.9 or less, adult; N11.9 Chronic tubulo-interstitial nephritis, unspecified; J45.909 Unspecified asthma, uncomplicated; Z85.3 Personal history of malignant neoplasm of breast; F32.9 Major depressive disorder, single episode, unspecified; F41.9 Anxiety disorder, unspecified; I10 Essential (primary) hypertension; Z87.440 Personal history of urinary (tract) infections; E11.43 Type 2 diabetes mellitus with diabetic autonomic (poly)neuropathy
CPT/HCPCS: 74176; 80048; 80061; 81001; 81003; 82728; 82962; 83036; 83540; 83615; 83735; 84100; 84439; 84443; 84466; 85025; 85045; 86850; 86900; 86901; 87086; 93005; 96374; 96375; 96376; 97110; 97116; 97162; J0696; J1450; J1644; J1815; J2270; J2405; J2543; J7030; J7040

== ENCOUNTER 2017-01-16 19:28 | Emergency (ER) | payer OTHER ==
[~2017-01-16] VITALS: Ht 144.8 cm; Wt 37.0 kg
[~2017-01-16 19:28] MED LIST changes: +CEPH500C PO; -CIPR500T4 PO
[2017-01-16 19:37] VITALS: Ht 144.8 cm; Wt 37.0 kg
[2017-01-16] MEDS ORDERED: ONDANSETRON 4 MG INJ IV STA (19:49)
[2017-01-16] MEDS ORDERED: SOD CHLORIDE 0.9% 1,000 ML IV STA (19:49)
[2017-01-16] MEDS ORDERED: morphine 4 MG/ML VIAL IV STA (19:49)
[2017-01-16 20:37] LABS: BASOPHIL # 0.1 10^3/ul (0.0-0.1); BASOPHILS % 0.9 % (0.0-2.0); EOSINOPHILS # 0.2 10^3/ul (0.0-0.5); EOSINOPHILS % 1.9 % (0.0-7.0); HEMATOCRIT 32.8 % (37.0-47.0); HEMOGLOBIN 11.3 g/dl (12.0-16.0); LYMPHOCYTES # 3.6 10^3/ul (0.8-2.9); LYMPHOCYTES % 40.8 % (15.0-51.0); MEAN CORPUSCULAR HEMOGLOBIN 30.4 pg (29.0-33.0); MEAN CORPUSCULAR HGB CONC 34.5 g/dl (32.0-37.0); MEAN CORPUSCULAR VOLUME 88.2 fl (82.0-101.0); MEAN PLATELET VOLUME 9.5 fl (7.4-10.4); MONOCYTE # 0.8 10^3/ul (0.3-0.9); MONOCYTES % 8.7 % (0.0-11.0); NEUTROPHIL # 4.1 10^3/ul (1.6-7.5); NEUTROPHILS % 47.5 % (39.0-77.0); PLATELET COUNT 213 10^3/UL (140-415); RED BLOOD COUNT 3.72 10^6/ul (4.20-5.40); RED CELL DISTRIBUTION WIDTH 12.6 % (11.5-14.5); WHITE BLOOD COUNT 8.7 10^3/ul (4.8-10.8)
[2017-01-16 20:40] LABS: ADD UMIC YES; UR ASCORBIC ACID NEGATIVE (NEGATIVE); UR BACTERIA MANY /HPF (NONE SEEN); UR BILIRUBIN (Dip) NEGATIVE (NEGATIVE); UR BLOOD (Dip) 1+ mg/dL (NEGATIVE); UR BUDDING YEAST MANY /HPF (NONE SEEN); UR CLARITY TURBID (CLEAR); UR COLOR YELLOW (YELLOW); UR GLUCOSE (Dip) 3+ mg/dL (NEGATIVE); UR KETONES (Dip) NEGATIVE (NEGATIVE); UR LEUKOCYTE ESTERASE (Dip) 3+ Leu/ul (NEGATIVE); UR NITRITE (Dip) NEGATIVE (NEGATIVE); UR RBC 41 /HPF (0-5); UR SPECIFIC GRAVITY (Dip) 1.009 (1.003-1.030); UR SQUAMOUS EPITHELIAL CELL FEW /HPF (FEW); UR TOTAL PROTEIN (Dip) 1+ mg/dl (NEGATIVE); UR UROBILINOGEN (Dip) NEGATIVE (NEGATIVE); UR WBC CLUMPS OCCASIONAL /HPF (NONE SEEN)
[2017-01-16 21:01] LABS: ALANINE AMINOTRANSFERASE 41 IU/L (13-69); ALBUMIN 4.6 g/dl (3.3-4.9); ALBUMIN/GLOBULIN RATIO 1.24; ALKALINE PHOSPHATASE 124 IU/L (42-121); ANION GAP 20 (8-16); ASPARTATE AMINO TRANSFERASE 29 IU/L (15-46); BLOOD UREA NITROGEN 26 mg/dl (7-20); CALCIUM 9.9 mg/dl (8.4-10.2); CARBON DIOXIDE 28 mmol/L (21-31); CHLORIDE 98 mmol/L (97-110); CREATININE 1.06 mg/dl (0.44-1.00); GLUCOSE 206 mg/dl (70-220); POTASSIUM 3.8 mmol/L (3.5-5.1); SODIUM 142 mmol/L (135-144); TOTAL PROTEIN 8.3 g/dl (6.1-8.1)
[2017-01-16 21:11] LABS: TROPONIN-I < 0.012 ng/ml (0.00-0.12)
[2017-01-16] MEDS ORDERED: CIPROFLOXACIN 500 MG TAB PO ONE (21:30)
[2017-01-16] MEDS ORDERED: ONDA4TAB14 PO (21:40)
[2017-01-16] MEDS ORDERED: IBUP-1542 PO (21:40)
[2017-01-16] MEDS ORDERED: PHEN-538 PO (21:40)
[2017-01-16] MEDS ORDERED: CIPR500T4 PO (21:40)
--- NOTE | 2017-01-16 21:42 | ERD ---
ER Documentation Chief Complaint Date/Time DATE: 01/16/17 TIME: 21:42 Chief Complaint Dizziness and N/V x1 day. Hx: breast CA, DM HPI Patient is a 51-year-old female with diabetes and breast cancer who presents with nausea and headache. She feels headache from the front of her head to the back. She feels weakness. She has had this in the past. Her weakness is all over and there is no focal weakness at this time. She denies any bleeding. She denies fevers. She tried Excedrin for her pain. Upon review of old medical records this is the patient's ninth visit to the ER since 2013. Her primary doctor is Dr. Duron. ROS All systems reviewed and are negative except as per history of present illness. Medications Home Meds Active Scripts Phenazopyridine Hcl* (Pyridium*) 200 Mg Tab, 200 MG PO TID Y for URINARY PAIN, # 6 TAB Prov:DESIREE PEREIRA MD 01/16/17 Ibuprofen* (Motrin*) 600 Mg Tab, 600 MG PO Q8, #30 TAB Prov:DESIREE PEREIRA MD 01/16/17 Ondansetron (Ondansetron Odt) 4 Mg Tab.rapdis, 4 MG PO Q6H Y for NAUSEA AND/OR VOMITING, #30 TAB Prov:DESIREE PEREIRA MD 01/16/17 Ciprofloxacin Hcl* (Ciprofloxacin Hcl*) 500 Mg Tablet, 500 MG PO BID for 7 Days , TAB Prov:DESIREE PEREIRA MD 01/16/17 Cephalexin* (Cephalexin*) 500 Mg Capsule, 500 MG PO TID, #15 CAP Prov:BARB WHITE MD 09/01/16 Phenazopyridine Hcl* (Pyridium*) 100 Mg Tab, 100 MG PO TID, #15 TAB Prov:BARB WHITE MD 09/01/16 Metoprolol Tartrate* (Lopressor*) 25 Mg Tab, 12.5 MG PO BID, #60 TAB Prov:BARB WHITE MD 05/30/16 Salmeterol Xinaf-Fluticasone* (Advair*) 100/50 Diskus Inhaler, 1 INH INH BID for 30 Days Prov:DEJAN JEFFERSON 01/27/16 Montelukast Sodium* (Montelukast Sodium*) 10 Mg Tablet, 10 MG PO QHS for 30 Days , TAB Prov:DEJAN JEFFERSON 01/27/16 Insulin Glargine* (Lantus*) 100 Unit/Ml Soln, 17 UNIT SC QPM for 30 Days Prov:DEJAN JEFFERSON 01/27/16 Insulin Glargine* (Lantus*) 100 Unit/Ml Soln, 17 UNIT SC QAM for 30 Days Prov:DEJAN JEFFERSON 01/27/16 Ondansetron Hcl* (Zofran*) 4 Mg Tab, 4 MG PO Q4H Y for NAUSEA AND OR VOMITING, # 30 TAB Prov:DEJAN JEFFERSON 01/27/16 Docusate Sodium* (Colace*) 100 Mg Capsule, 100 MG PO BID Y for CONSTIPATION for 30 Days, #60 CAP Prov:URI GARRIDO S. 12/08/15 Calcium Carbonate* (Tums*) 500 Mg Tab.chew, 1000 MG PO Q4 Y for HEARTBURN for 30 Days, TAB.CHEW Prov:URI GARRIDO S. 12/08/15 Reported Medications Pregabalin* (Lyrica*) 75 Mg Capsule, 75 MG PO BID, CAP 05/29/16 Famotidine* (Famotidine*) 20 Mg Tablet, 20 MG PO DAILY, #30 TAB 05/29/16 Hydrocodone/Acetaminophen ([place] 10-325 Tablet) 1 Each Tablet, 1 EACH PO Q6 Y for PAIN, TAB 05/29/16 Sertraline Hcl* (Zoloft*) 100 Mg Tablet, 100 MG PO DAILY, #30 TAB 05/29/16 Megestrol Acetate* (Megestrol Acetate*) 40 Mg Tablet, 40 MG PO DAILY, TAB 05/29/16 Folic Acid* (Folic Acid*) 1 Mg Tablet, 1 MG PO DAILY, TAB 05/29/16 Alprazolam* (Xanax*) 0.25 Mg Tablet, 0.25 MG PO TID Y for ANXIETY, TAB 12/02/15 Ipratropium-Albuterol (Ipratropium-Albuterol) 0.5-3 Mg/3 Ml Ampul.neb, 3 ML INHALATION Q4 Y for SHORTNESS OF BREATH, #30 VIAL 12/02/15 Acetaminophen* (Acetaminophen*) 650 Mg Tablet, 650 MG PO Q4 Y for FEVER, #30 TAB 12/02/15 Loratadine* (Loratadine*) 10 Mg Tablet, 10 MG PO DAILY, #30 TAB 12/02/15 Allergies Allergies: Coded Allergies: No Known Allergy (Unverified , 12/18/15) PMhx/Soc History of Surgery: Yes (LEFT BREAST LUMPECTOMY SEPTEMBER 2015, RIGHT BIG TOE AMPUTATION 01/2016) Anesthesia Reaction: No Hx Neurological Disorder: No Hx Respiratory Disorders: Yes (ASTHMA) Hx Cardiac Disorders: Yes (HTN, IRREGULAR HEART RATE) Hx Psychiatric Problems: Yes (DEPRESSION) Hx Miscellaneous Medical Probl: Yes (pls see EMR) Hx Alcohol Use: No Hx Substance Use: No Hx Tobacco Use: No Smoking Status: Unknown if ever smoked FmHx Family History: diabetes Physical Exam Vitals Vital Signs Date Time Temp Pulse Resp B/P Pulse Ox O2 Delivery O2 Flow Rate FiO2 01/16/17 19:37 98.1 101 20 115/81 98 Physical Exam Const: No acute distress Head: Atraumatic Eyes: Normal Conjunctiva ENT: Normal External Ears, Nose and Mouth. Neck: Full range of motion..~ No meningismus. Resp: Clear to auscultation bilaterally Cardio: Regular rate and rhythm, no murmurs Abd: Soft, non tender, non distended. Normal bowel sounds Skin: No petechiae or rashes Back: No midline or flank tenderness Ext: No cyanosis, or edema Neur: Awake and alert, no weakness of the upper or lower extremities bilaterally Psych: Normal Mood and Affect Result Diagram: 01/16/17201901/16/172019 Results 24 hrs Laboratory Tests Test 01/16/17 20:00 01/16/17 20:20 Urine Color YELLOW Urine Clarity TURBID Urine pH 5.0 Urine Specific [place] 1.009 Urine Ketones NEGATIVEmg/dL Urine Nitrite NEGATIVEmg/dL Urine Bilirubin NEGATIVEmg/dL Urine Urobilinogen NEGATIVEmg/dL Urine Leukocyte Esterase 3+Rupesh/ul Urine Microscopic RBC 41/HPF Urine Microscopic WBC > 182/HPF Urine Squamous Epithelial Cells FEW/HPF Urine Bacteria MANY/HPF Urine Yeast (Budding) MANY/HPF Urine Hemoglobin 1+mg/dL Urine Glucose 3+mg/dL Urine Total Protein 1+mg/dl White Blood Count 8.710^3/ul Red Blood Count 3.7210^6/ul Hemoglobin 11.3g/dl Hematocrit 32.8% Mean Corpuscular Volume 88.2fl Mean Corpuscular Hemoglobin 30.4pg Mean Corpuscular Hemoglobin Concent 34.5g/dl Red Cell Distribution Width 12.6% Platelet Count 97032^3/UL Mean Platelet Volume 9.5fl Neutrophils % 47.5% Lymphocytes % 40.8% Monocytes % 8.7% Eosinophils % 1.9% Basophils % 0.9% Nucleated Red Blood Cells % 0.0/100WBC Neutrophils # 4.110^3/ul Lymphocytes # 3.610^3/ul Monocytes # 0.810^3/ul Eosinophils # 0.210^3/ul Basophils # 0.110^3/ul Nucleated Red Blood Cells # 0.010^3/ul Sodium Level 142mmol/L Potassium Level 3.8mmol/L Chloride Level 98mmol/L Carbon Dioxide Level 28mmol/L Anion Gap 20 Blood Urea Nitrogen 26mg/dl Creatinine 1.06mg/dl Glucose Level 206mg/dl Calcium Level 9.9mg/dl Total Bilirubin 1.0mg/dl Direct Bilirubin 0.00mg/dl Indirect Bilirubin 1.0mg/dl Aspartate Amino Transf (AST/SGOT) 29IU/L Alanine Aminotransferase (ALT/SGPT) 41IU/L Alkaline Phosphatase 124IU/L Troponin I < 0.012ng/ml Total Protein 8.3g/dl Albumin 4.6g/dl Globulin 3.70g/dl Albumin/Globulin Ratio 1.24 Lipase 38U/L Current Medications Medications (Trade) Dose Ordered Sig/Muna Route PRN Reason Start Time Stop Time Status Last Admin Dose Admin Sodium Chloride (NS) 1,000 ml @ 1,000 mls/hr Q1H STAT IV 01/16/17 19:49 01/16/17 20:48 DC 01/16/17 20:25 Morphine Sulfate (morphine) 4 mg ONCE STAT IV 01/16/17 19:49 01/16/17 19:50 DC 01/16/17 20:26 Ondansetron HCl (Zofran Inj) 4 mg ONCE STAT IV 01/16/17 19:49 01/16/17 19:50 DC 01/16/17 20:26 Ciprofloxacin (Cipro) 500 mg ONCE ONCE PO 01/16/17 21:30 01/16/17 21:31 DC 01/16/17 21:46 Procedures/MDM EKG read by me: Rate/Rhythm: Regular rate and rhythm at a rate of 95 Intervals: Normal Impression: No evidence of ischemia or arrhythmia Urinalysis shows acute infection. Patient is a 51-year-old female who presents with multiple complaints. She was found to have an acute cystitis. Her laboratory studies are basically normal. She is otherwise well-appearing and I doubt sepsis at this time. The patient will be treated with Cipro, Pyridium, ibuprofen, and Zofran. She will need close follow-up with her primary doctor within 24-48 hours and could return if symptoms worsen. She has anemia but does not require transfusion. Electrolytes are basically normal. Departure Diagnosis: Primary Impression: Dizziness Additional Impression: Cystitis Condition: Fair Patient Instructions: Cystitis, Dizziness, Unk Cause Referrals: FARIHA LAGUERRE (PCP) Additional Instructions: Call your primary care doctor TOMORROW for an appointment during the next 1-2 days.See the doctor sooner or return here if your condition worsens before your appointment time. DESIREE PEREIRA MD Jan 16, 2017 21:42
[2017-01-16 22:43] VITALS: BP 128/86; PULSE 97; RESP 18
== END 2017-01-16 22:44 | disposition home or self-care (01) ==
LOC: E/R 19:28
DX: R42 Dizziness and giddiness (principal); N30.90 Cystitis, unspecified without hematuria; I10 Essential (primary) hypertension; J45.909 Unspecified asthma, uncomplicated; E11.9 Type 2 diabetes mellitus without complications; Z79.4 Long term (current) use of insulin; Z85.3 Personal history of malignant neoplasm of breast
CPT/HCPCS: 36415; 80053; 81001; 83690; 84484; 85025; 93005; 96374; 96375; J2270; J2405; J7030; Z7502; Z7610

== ENCOUNTER 2017-01-25 12:39 | Emergency (ER) | payer OTHER ==
[~2017-01-25] VITALS: Ht 142.2 cm; Wt 36.0 kg
[~2017-01-25 12:39] MED LIST changes: +CIPR500T4 PO; +IBUP-1542 PO; +ONDA4TAB14 PO; +PHEN-538 PO
[2017-01-25 12:45] VITALS: Ht 142.2 cm; Wt 36.0 kg
[2017-01-25] MEDS ORDERED: IBUPROFEN 600 MG TAB PO ONE (13:30)
--- NOTE | 2017-01-25 13:55 | ERD ---
ER Documentation Chief Complaint Date/Time DATE: 01/25/17 TIME: 13:53 Chief Complaint Pt with L wrist pain X 2 days after falling on her wrist. HPI 48-year-old female history of left wrist contracture for 6 months, history of breast cancer just finishing chemo who is right-hand dominant presents with a fall onto outstretched hand complaining of left radial wrist pain for the past 2 days. Patient's pain is achy, localized, worse in movement and better at rest. Denies any other injuries. Denies any weakness. ROS All systems reviewed and are negative except as per history of present illness. Medications Home Meds Active Scripts Ibuprofen* (Motrin*) 600 Mg Tab, 600 MG PO Q6, #30 TAB Prov:JOHANA NEWMAN PA-C 01/25/17 Hydrocodone/Acetaminophen ([place] 5-325 Tablet) 1 Each Tablet, 1 TAB PO Q6H Y for PAIN, #15 TAB Prov:JOHANA NEWMAN PA-C 01/25/17 Phenazopyridine Hcl* (Pyridium*) 200 Mg Tab, 200 MG PO TID Y for URINARY PAIN, # 6 TAB Prov:DESIREE PEREIRA MD 01/16/17 Ibuprofen* (Motrin*) 600 Mg Tab, 600 MG PO Q8, #30 TAB Prov:DESIREE PEREIRA MD 01/16/17 Ondansetron (Ondansetron Odt) 4 Mg Tab.rapdis, 4 MG PO Q6H Y for NAUSEA AND/OR VOMITING, #30 TAB Prov:DESIREE PEREIRA MD 01/16/17 Ciprofloxacin Hcl* (Ciprofloxacin Hcl*) 500 Mg Tablet, 500 MG PO BID for 7 Days , TAB Prov:DESIREE PEREIRA MD 01/16/17 Cephalexin* (Cephalexin*) 500 Mg Capsule, 500 MG PO TID, #15 CAP Prov:BARB WHITE MD 09/01/16 Phenazopyridine Hcl* (Pyridium*) 100 Mg Tab, 100 MG PO TID, #15 TAB Prov:BARB WHITE MD 09/01/16 Metoprolol Tartrate* (Lopressor*) 25 Mg Tab, 12.5 MG PO BID, #60 TAB Prov:BARB WHITE MD 05/30/16 Salmeterol Xinaf-Fluticasone* (Advair*) 100/50 Diskus Inhaler, 1 INH INH BID for 30 Days Prov:LIDEJAN 01/27/16 Montelukast Sodium* (Montelukast Sodium*) 10 Mg Tablet, 10 MG PO QHS for 30 Days , TAB Prov:LIDEJAN 01/27/16 Insulin Glargine* (Lantus*) 100 Unit/Ml Soln, 17 UNIT SC QPM for 30 Days Prov:LIDEJAN 01/27/16 Insulin Glargine* (Lantus*) 100 Unit/Ml Soln, 17 UNIT SC QAM for 30 Days Prov:DEJAN JEFFERSON 01/27/16 Ondansetron Hcl* (Zofran*) 4 Mg Tab, 4 MG PO Q4H Y for NAUSEA AND OR VOMITING, # 30 TAB Prov:LIDEJAN 01/27/16 Docusate Sodium* (Colace*) 100 Mg Capsule, 100 MG PO BID Y for CONSTIPATION for 30 Days, #60 CAP Prov:URI GARRIDO S. 12/08/15 Calcium Carbonate* (Tums*) 500 Mg Tab.chew, 1000 MG PO Q4 Y for HEARTBURN for 30 Days, TAB.CHEW Prov:URI GARRIDO S. 12/08/15 Reported Medications Pregabalin* (Lyrica*) 75 Mg Capsule, 75 MG PO BID, CAP 05/29/16 Famotidine* (Famotidine*) 20 Mg Tablet, 20 MG PO DAILY, #30 TAB 05/29/16 Hydrocodone/Acetaminophen ([place] 10-325 Tablet) 1 Each Tablet, 1 EACH PO Q6 Y for PAIN, TAB 05/29/16 Sertraline Hcl* (Zoloft*) 100 Mg Tablet, 100 MG PO DAILY, #30 TAB 05/29/16 Megestrol Acetate* (Megestrol Acetate*) 40 Mg Tablet, 40 MG PO DAILY, TAB 05/29/16 Folic Acid* (Folic Acid*) 1 Mg Tablet, 1 MG PO DAILY, TAB 05/29/16 Alprazolam* (Xanax*) 0.25 Mg Tablet, 0.25 MG PO TID Y for ANXIETY, TAB 12/02/15 Ipratropium-Albuterol (Ipratropium-Albuterol) 0.5-3 Mg/3 Ml Ampul.neb, 3 ML INHALATION Q4 Y for SHORTNESS OF BREATH, #30 VIAL 12/02/15 Acetaminophen* (Acetaminophen*) 650 Mg Tablet, 650 MG PO Q4 Y for FEVER, #30 TAB 12/02/15 Loratadine* (Loratadine*) 10 Mg Tablet, 10 MG PO DAILY, #30 TAB 12/02/15 Allergies Allergies: Coded Allergies: No Known Allergy (Unverified , 12/18/15) PMhx/Soc History of Surgery: Yes (LEFT BREAST LUMPECTOMY SEPTEMBER 2015, RIGHT BIG TOE AMPUTATION 01/2016) Anesthesia Reaction: No Hx Neurological Disorder: No Hx Respiratory Disorders: Yes (ASTHMA) Hx Cardiac Disorders: Yes (HTN, IRREGULAR HEART RATE) Hx Psychiatric Problems: Yes (DEPRESSION) Hx Miscellaneous Medical Probl: Yes (Breast cancer) Hx Alcohol Use: No Hx Substance Use: No Hx Tobacco Use: No Smoking Status: Never smoker Physical Exam Vitals Vital Signs Date Time Temp Pulse Resp B/P Pulse Ox O2 Delivery O2 Flow Rate FiO2 01/25/17 12:45 98.3 103 18 96/61 99 Physical Exam General: Well-developed, well-nourished. The patient appears in no acute distress. HEENT: Head is normocephalic, atraumatic. No scleral icterus. Neck: Supple. Nontender. Lungs: Clear to auscultation. Normal air movement. Heart: Regular rate and rhythm. S1 and S2 are normal. No murmurs, gallops, or rubs. Abdomen: Nondistended. Extremities: Tenderness over the base of the left thumb, that she is able to flex and extend at the IP joint. There is questionable tenderness at the scaphoid, there is radial wrist swelling. She is able to flex and extend the wrist. Patient is able to make thumbs up and okay sign. She is mildly contracted, this is patient's baseline. Neurologic: Alert and oriented 3. No focal deficits. Normal speech and gait. Skin: Normal turgor. No rash or lesions. Results 24 hrs Current Medications Medications (Trade) Dose Ordered Sig/Muna Route PRN Reason Start Time Stop Time Status Last Admin Dose Admin Ibuprofen (Motrin) 600 mg ONCE ONCE PO 01/25/17 13:30 01/25/17 13:31 DC 01/25/17 13:22 DIAGNOSTIC IMAGING REPORT Patient: YONATAN CUTLER : 1965 Age: 51 Sex: F MR #: [id number] [facility] #: [id number] DOS: 01/25/17 1314 Ordering MD: JOHANA NEWMAN PA-C Location: [facility] Room/Bed: PROCEDURE: XR Wrist. CLINICAL INDICATION: Fall TECHNIQUE: AP, lateral and oblique views of the left wrist were performed. COMPARISON: No prior studies are available for comparison. FINDINGS: There is no acute osseous or articular abnormality. No evidence for fracture. Bone mineral density is decreased. The articular surfaces are smooth without evidence of marginal erosions. The soft tissues are intact. Atherosclerotic vascular calcifications are present. IMPRESSION: 1. Decreased bone mineral density without radiographic evidence for fracture. 2. Vascular calcifications. RPTAT: OO .Wali Crum MD, MD Date Time Electronically viewed and signed by .Wali Crum MD, MD on 01/25/2017 14:01 Procedures/MDM ED course: She was given ibuprofen for pain. Her left wrist was placed in a thumb spica splint. Splint Assessment: Neurovascularly intact post splint placement with good fit. And placed in a sling for comfort. 51 year old female comes in with a left wrist injury, x-rays of the left wrist are unremarkable with no evidence of a fracture. She does have tenderness to the base of the thumb as well as extending to the snuffbox, cannot rule out occult scaphoid fracture and she was splinted in a thumb spica splint and advised to follow-up with orthopedics for reevaluation. Differentials include wrist sprain versus thumb sprain, versus scaphoid fracture. Departure Diagnosis: Primary Impression: Wrist injury Condition: Good JOHANA NEWMAN PA-C Jan 25, 2017 13:54
--- NOTE | 2017-01-25 14:01 | RADRPT ---
PROCEDURE: XR Wrist. CLINICAL INDICATION: Fall TECHNIQUE: AP, lateral and oblique views of the left wrist were performed. COMPARISON: No prior studies are available for comparison. FINDINGS: There is no acute osseous or articular abnormality. No evidence for fracture. Bone mineral density is decreased. The articular surfaces are smooth without evidence of marginal erosions. The soft tis sues are intact. Atherosclerotic vascular calcifications are present. IMPRESSION: 1. Decreased bone mineral density without radiographic evidence for fracture. 2. Vascular calcifications. RPTAT: OO .Wali Crum MD, MD Date Time Electronically viewed and signed by .Wali Crum MD, MD on 01/25/2017 14:01 .d/
[2017-01-25] MEDS ORDERED: HYDR-906 PO (14:29)
[2017-01-25] MEDS ORDERED: IBUP-1542 PO (14:29)
== END 2017-01-25 14:47 | disposition home or self-care (01) ==
LOC: FTE 12:39
DX: S69.92XA Unspecified injury of left wrist, hand and finger(s), initial encounter (principal); I10 Essential (primary) hypertension; J45.909 Unspecified asthma, uncomplicated; E11.9 Type 2 diabetes mellitus without complications; W18.39XA Other fall on same level, initial encounter; Y92.9 Unspecified place or not applicable; Z79.4 Long term (current) use of insulin; Z85.3 Personal history of malignant neoplasm of breast
CPT/HCPCS: 29125; 73110; Z7502; Z7610

== ENCOUNTER 2017-02-04 06:37 | Day surgery (SDC) | payer OTHER ==
[~2017-02-04] VITALS: Ht 142.2 cm; Wt 37.9 kg
[~2017-02-04 06:37] MED LIST changes: +HYDR-906 PO
[2017-02-04 07:52] VITALS: Ht 142.2 cm; Wt 37.9 kg
[2017-02-04] MEDS ORDERED: HEART MEDICATION (07:52)
[2017-02-04] MEDS ORDERED: [UNRECOGNIZED DRUG - OTHER] (07:52)
[2017-02-04] MEDS ORDERED: LANTUS (07:52)
[2017-02-04] MEDS ORDERED: BLOOD PRESSURE (07:52)
[2017-02-04] MEDS ORDERED: ONDANSETRON 4 MG INJ ONE ×2 (07:56→09:06)
[2017-02-04] MEDS ORDERED: METOCLOPRAMIDE 10 MG INJ ONE (07:56)
[2017-02-04] MEDS ORDERED: FENTAnyl 50 MCG/ML VIAL ONE (07:56)
[2017-02-04] MEDS ORDERED: ETOMIDATE 20 MG INJ ONE (07:56)
[2017-02-04] MEDS ORDERED: MIDAZOLAM 1 MG/ML 2 ML INJ ONE (07:56)
[2017-02-04 08:21] VITALS: BP 139/65; PULSE 91; RESP 10
--- NOTE | 2017-02-04 09:01 | OPPN ---
Date/Time of Note Date/Time of Note DATE: 02/04/17 TIME: 08:59 Operative Report Preoperative Diagnosis Chronic diarrhea vomiting and weight loss Postoperative Diagnosis Same Operation/Procedure Performed EGD with a biopsy 1. Gastritis 2. Stenosis GE junction site offered slight resistance to the passage of the scope 3. Gastroparesis Colonoscopy with biopsy Normal: All the way to the cecum Provider: SABRINA MALIK MD Estimated blood loss: none Transfusion Required: no Specimen: none Grafts/Implants: none Complications: no SABRINA MALIK MD Feb 04, 2017 09:01
--- NOTE | 2017-02-04 09:16 | OPPN ---
Date/Time of Note Date/Time of Note DATE: 02/04/17 TIME: 08:58 Operative Report Anesthesia Type: MAC Transfusion Required: no Specimen: none Grafts/Implants: none Complications: no SABRINA MALIK MD Feb 04, 2017 09:08
[2017-02-04 09:24] VITALS: BP 104/67; RESP 14
--- NOTE | 2017-02-04 15:20 | GILP ---
DATE OF PROCEDURE: 02/04/2017 PROCEDURE PERFORMED: Esophagogastroduodenoscopy with biopsy and colonoscopy with biopsy. SURGEON: Theo Rosenthal MD INDICATIONS FOR PROCEDURE: The patient is a 51-year-old female with history of cancer of the breast, undergoing this procedure for diarrhea and significant weight loss and nausea and vomiting. The patient is also a diabetic. The risks of the procedure, related complications, and anesthetic risk alternatives discussed. Informed consent was obtained. DESCRIPTION OF PROCEDURE: The patient was brought to the GI lab, sedated by the anesthesiologist, Dr. Parekh. After optimal sedation, scope was passed with much ease into the esophagus, which was grossly within normal limits. The Z-line was regular. It was at 30 cm, although some resistance offered to the passage of the scope. Advanced further down into stomach, gastritis identified. Multiple biopsies obtained randomly to rule out H pylori infection. Duodenum, first and second part, including the ampulla, was normal. Retroversion done. No growth was seen. Scope was straightened out and removed with good patient tolerance. IMPRESSION: 1. Normal esophagus. 2. Z-line at 30 cm. 3. Mild esophageal stenosis offered a resistance to the passage of the scope. 4. Gastritis and mild gastroparesis, though some food debris in the antrum. 5. Normal duodenum and ampulla. PLAN: Review histopathology. Encourage p.o. feeding. DESCRIPTION OF PROCEDURE: Patient was turned around. Scope was passed with much ease into the rectum after digital examination. The sphincter tone was normal. Scope was advanced slowly all the way into the cecum, appendiceal orifice identified, IC valve identified. While coming out, mucosa laterally inspected. The rest of the colon was normal. Random biopsies, 4-5 obtained to rule out collagenous or microscopic colitis. Clarity was good. Cleanliness was good. IMPRESSION: 1. Normal finding all the way into the cecum. 2. Good clarity and cleanliness. 3. Random biopsies obtained. PLAN: Review histopathology. This finding cannot explain her weight loss. The patient may need a total body PET scan, given the history of cancer of the breast. Dictated By: Theo Rosenthal MD /carlos/kaley /Document#: [id number]
== END 2017-02-04 10:54 | disposition home or self-care (01) ==
LOC: GIL 06:37
PROVIDERS: ATTEND Internal Medicine Gastroenterology
DX: R19.7 Diarrhea, unspecified (principal); K29.50 Unspecified chronic gastritis without bleeding; E11.43 Type 2 diabetes mellitus with diabetic autonomic (poly)neuropathy; K31.84 Gastroparesis; Z85.3 Personal history of malignant neoplasm of breast; I10 Essential (primary) hypertension
CPT/HCPCS: 43239; 45380; 82962; 88305; 88312; J2250; J2405; J2765; J3010; Z7610

== ENCOUNTER 2017-04-06 15:34 | Emergency (ER) | payer OTHER ==
[~2017-04-06] VITALS: Ht 142.2 cm; Wt 37.0 kg
[~2017-04-06 15:34] MED LIST changes: +BLOOD PRESSURE; +HEART MEDICATION; +LANTUS; +[UNRECOGNIZED DRUG - OTHER]
[2017-04-06 15:39] VITALS: Ht 142.2 cm; Wt 37.0 kg
--- NOTE | 2017-04-06 17:13 | ERD ---
ER Documentation Chief Complaint Chief Complaint cough and sob x 2 days HPI The patient is a 51-year-old female, presented to the ER because of a fever, intermittent cough and painful urination for 2 days, she denies neck pain, chest pain, dyspnea, abdominal pain, vomiting. She does not smoke nor drink Past medical history: Diabetes mellitus, GERD, COPD asthma, depression, history of left breast cancer status post chemo and radiation therapy, History of hypotension Past surgical history: Left breast lumpectomy, right foot and second toe amputation ROS All systems reviewed and are negative except as per history of present illness. Medications Home Meds Active Scripts Ibuprofen* (Motrin*) 600 Mg Tab, 600 MG PO Q6, #30 TAB Prov:JOHANA NEWMAN PA-C 01/25/17 Hydrocodone/Acetaminophen ([place] 5-325 Tablet) 1 Each Tablet, 1 TAB PO Q6H Y for PAIN, #15 TAB Prov:JOHANA NEWMAN PA-C 01/25/17 Phenazopyridine Hcl* (Pyridium*) 200 Mg Tab, 200 MG PO TID Y for URINARY PAIN, # 6 TAB Prov:DESIREE PEREIRA MD 01/16/17 Ibuprofen* (Motrin*) 600 Mg Tab, 600 MG PO Q8, #30 TAB Prov:DESIREE PEREIRA MD 01/16/17 Ondansetron (Ondansetron Odt) 4 Mg Tab.rapdis, 4 MG PO Q6H Y for NAUSEA AND/OR VOMITING, #30 TAB Prov:DESIREE PEREIRA MD 01/16/17 Ciprofloxacin Hcl* (Ciprofloxacin Hcl*) 500 Mg Tablet, 500 MG PO BID for 7 Days , TAB Prov:DESIREE PEREIRA MD 01/16/17 Cephalexin* (Cephalexin*) 500 Mg Capsule, 500 MG PO TID, #15 CAP Prov:BARB WHITE MD 09/01/16 Phenazopyridine Hcl* (Pyridium*) 100 Mg Tab, 100 MG PO TID, #15 TAB Prov:BARB WHITE MD 09/01/16 Metoprolol Tartrate* (Lopressor*) 25 Mg Tab, 12.5 MG PO BID, #60 TAB Prov:BARB WHITE MD 05/30/16 Salmeterol Xinaf-Fluticasone* (Advair*) 100/50 Diskus Inhaler, 1 INH INH BID for 30 Days Prov:NICKINATYLOUISDEJAN 01/27/16 Montelukast Sodium* (Montelukast Sodium*) 10 Mg Tablet, 10 MG PO QHS for 30 Days , TAB Prov:LOUIS JEFFERSONNELL 01/27/16 Insulin Glargine* (Lantus*) 100 Unit/Ml Soln, 17 UNIT SC QPM for 30 Days Prov:LIDEJAN 01/27/16 Insulin Glargine* (Lantus*) 100 Unit/Ml Soln, 17 UNIT SC QAM for 30 Days Prov:NICKINATYDEJAN 01/27/16 Ondansetron Hcl* (Zofran*) 4 Mg Tab, 4 MG PO Q4H Y for NAUSEA AND OR VOMITING, # 30 TAB Prov:LIDEJAN 01/27/16 Docusate Sodium* (Colace*) 100 Mg Capsule, 100 MG PO BID Y for CONSTIPATION for 30 Days, #60 CAP Prov:URI GARRIDO S. 12/08/15 Calcium Carbonate* (Tums*) 500 Mg Tab.chew, 1000 MG PO Q4 Y for HEARTBURN for 30 Days, TAB.CHEW Prov:URI GARRIDO S. 12/08/15 Reported Medications [Lantus] No Conflict Check 02/04/17 [Heart Medication] No Conflict Check 02/04/17 [Docyclomide] No Conflict Check 02/04/17 [Blood Pressure] No Conflict Check 02/04/17 Pregabalin* (Lyrica*) 75 Mg Capsule, 75 MG PO BID, CAP 05/29/16 Famotidine* (Famotidine*) 20 Mg Tablet, 20 MG PO DAILY, #30 TAB 05/29/16 Hydrocodone/Acetaminophen ([place] 10-325 Tablet) 1 Each Tablet, 1 EACH PO Q6 Y for PAIN, TAB 05/29/16 Sertraline Hcl* (Zoloft*) 100 Mg Tablet, 100 MG PO DAILY, #30 TAB 05/29/16 Megestrol Acetate* (Megestrol Acetate*) 40 Mg Tablet, 40 MG PO DAILY, TAB 05/29/16 Folic Acid* (Folic Acid*) 1 Mg Tablet, 1 MG PO DAILY, TAB 05/29/16 Alprazolam* (Xanax*) 0.25 Mg Tablet, 0.25 MG PO TID Y for ANXIETY, TAB 12/02/15 Ipratropium-Albuterol (Ipratropium-Albuterol) 0.5-3 Mg/3 Ml Ampul.neb, 3 ML INHALATION Q4 Y for SHORTNESS OF BREATH, #30 VIAL 12/02/15 Acetaminophen* (Acetaminophen*) 650 Mg Tablet, 650 MG PO Q4 Y for FEVER, #30 TAB 12/02/15 Loratadine* (Loratadine*) 10 Mg Tablet, 10 MG PO DAILY, #30 TAB 12/02/15 Allergies Allergies: Coded Allergies: No Known Allergy (Unverified , 12/18/15) PMhx/Soc History of Surgery: Yes (LEFT BREAAST CANCER, TOE AMPUTATION, C SECTION) Anesthesia Reaction: No Hx Neurological Disorder: No Hx Respiratory Disorders: Yes (ASTHMA) Hx Cardiac Disorders: Yes (HTN) Hx Psychiatric Problems: No Hx Miscellaneous Medical Probl: No Hx Alcohol Use: No Hx Substance Use: No Hx Tobacco Use: No Physical Exam Vitals Vital Signs Date Time Temp Pulse Resp B/P Pulse Ox O2 Delivery O2 Flow Rate FiO2 04/06/17 18:48 Nasal Cannula 2 04/06/17 17:43 114 24 98 21 04/06/17 15:39 98.6 111 22 93/63 98 Physical Exam Const: No acute distress.Dehydrated Head: Atraumatic. Eyes: Normal Conjunctiva. ENT: Normal External Ears, Nose and Mouth. Neck: Full range of motion. No meningismus. Resp: Clear to auscultation bilaterally. Cardio: Regular rate and rhythm. Abd: Soft, non distended, normal bowel sounds, non tender. Skin: No petechiae or rashes. Back: No midline or flank tenderness. Ext: No cyanosis, or edema. Neur: Awake and alert. No focal deficit Psych: Normal Mood and Affect. Result Diagram: 04/06/17 [id number]/[id number] Results 24 hrs Laboratory Tests Test 04/06/17 17:45 04/06/17 17:50 04/06/17 19:15 White Blood Count 7.910^3/ul Red Blood Count 3.7810^6/ul Hemoglobin 11.4g/dl Hematocrit 33.7% Mean Corpuscular Volume 89.2fl Mean Corpuscular Hemoglobin 30.2pg Mean Corpuscular Hemoglobin Concent 33.8g/dl Red Cell Distribution Width 12.0% Platelet Count 68446^3/UL Mean Platelet Volume 9.6fl Neutrophils % 50.7% Lymphocytes % 37.6% Monocytes % 9.4% Eosinophils % 1.0% Basophils % 1.0% Nucleated Red Blood Cells % 0.0/100WBC Neutrophils # 4.010^3/ul Lymphocytes # 3.010^3/ul Monocytes # 0.710^3/ul Eosinophils # 0.110^3/ul Basophils # 0.110^3/ul Nucleated Red Blood Cells # 0.010^3/ul Prothrombin Time 14.1Sec Prothrombin Time Ratio 1.1 INR International Normalized Ratio 1.09 Activated Partial Thromboplast Time 27.7Sec Sodium Level 141mmol/L Potassium Level 3.8mmol/L Chloride Level 99mmol/L Carbon Dioxide Level 28mmol/L Anion Gap 18 Blood Urea Nitrogen 27mg/dl Creatinine 1.18mg/dl Glucose Level 306mg/dl Calcium Level 9.8mg/dl Total Bilirubin 0.7mg/dl Direct Bilirubin 0.00mg/dl Indirect Bilirubin 0.7mg/dl Aspartate Amino Transf (AST/SGOT) 26IU/L Alanine Aminotransferase (ALT/SGPT) 38IU/L Alkaline Phosphatase 172IU/L Troponin I < 0.012ng/ml Total Protein 8.3g/dl Albumin 4.5g/dl Globulin 3.80g/dl Albumin/Globulin Ratio 1.18 Lactic Acid Level 1.0mmol/L Bedside Urine pH (LAB) 5.5 Bedside Urine Protein (LAB) 2+ Bedside Urine Glucose (UA) 0.50% Bedside Urine Ketones (LAB) Negative Bedside Urine Blood 2+ Bedside Urine Nitrite (LAB) Negative Bedside Urine Leukocyte Esterase (L 3+ Current Medications Medications (Trade) Dose Ordered Sig/Muna Route PRN Reason Start Time Stop Time Status Last Admin Dose Admin Levalbuterol (Xopenex Neb) 1.25 mg ONCE ONCE [facility] 04/06/17 17:30 04/06/17 17:31 DC 04/06/17 17:42 Ipratropium [place] 0.5 mg 0.5 mg ONCE ONCE [facility] 04/06/17 17:30 04/06/17 17:31 DC 04/06/17 17:43 Sodium Chloride 1,000 ml @ 1,000 mls/hr Q1H ONCE IV 04/06/17 17:30 04/06/17 18:29 Cancel Sodium Chloride (NS) 1,150 ml @ 1,150 mls/hr BOLUS X1 ONCE IV 04/06/17 17:30 04/06/17 18:29 DC 04/06/17 19:01 Procedures/MDM [place] [id number] Radiology Main Line: [phone] DIAGNOSTIC IMAGING REPORT Patient: YONATAN CUTLER : 1965 Age: 51 Sex: F MR #: [id number] DOS: 04/06/17 1724 Ordering MD: EBONY PEÑA MD Location: E/R Room/Bed: PROCEDURE: XR Chest. CLINICAL INDICATION: chest pain TECHNIQUE: Single frontal view of the chest was obtained COMPARISON: CR CHEST 05/29/2016 FINDINGS: The heart and mediastinum are within normal limits. There is a right chest wall port in place. The lungs are clear. There is no pleural effusion or pneumothorax. RPTAT: AA IMPRESSION: No acute disease. .Luciano Bauman MD, MD Date Time Electronically viewed and signed by .Luciano Bauman MD, MD on 04/06/2017 17: 39 .S/ CC: EBONY PEÑA MD EKG: Read by emergency physician Rate/Rhythm: Sinus tachycardia 113 beats/min QRS, ST, T-waves: No ST elevation, no T inversion Impression: Abnormal EKG MEDICAL MAKING DECISION: The patient is a 51-year-old female, presenting with acute UTI, acute dehydration. She was treated with normosaline 30 mL/kg IV for acute dehydration, Cipro p.o. with good response. She is stable for o/p follow- up he is stable for outpatient follow-up The differential diagnoses considered include but are not limited to pneumonia, UTI, pyelonephritis Departure Diagnosis: Primary Impression: UTI (urinary tract infection) Additional Impressions: Dehydration Anemia Condition: Good Comments She was discharged with Cipro I discussed the findings with the patient. I advised the patient to follow-up with the primary physician in about 1-2 days, sooner if needed and return if any concern. Disclaimer: Inadvertent spelling and grammatical errors are likely due to EHR/ dictation software use and do not reflect on the overall quality of patient care. Also, please note that the electronic time recorded on this note does not necessarily reflect the actual time of the patient encounter. EBONY PEÑA MD Apr 06, 2017 17:13
[2017-04-06] MEDS ORDERED: LEVALBUTEROL (NEB) 1.25 MG/0.5 ML AMP HHN ONE (17:30)
[2017-04-06] MEDS ORDERED: SOD CHLORIDE 0.9% 1,000 ML IV ONE (17:30)
[2017-04-06] MEDS ORDERED: SOD CHLORIDE 0.9% IV ONE (17:30)
[2017-04-06] MEDS ORDERED: IPRATROPIUM (NEB) 0.5 MG/2.5 ML AMP HHN ONE (17:30)
--- NOTE | 2017-04-06 17:39 | RADRPT ---
PROCEDURE: XR Chest. CLINICAL INDICATION: chest pain TECHNIQUE: Single frontal view of the chest was obtained COMPARISON: CR CHEST 05/29/2016 FINDINGS: The heart and mediastinum are within normal limits. There is a right chest wall port in place. The lungs are clear. There is no pleural effusion or pneumothorax. RPTAT: AA IMPRESSION: No acute disease. .Luciano Bauman MD, MD Date Time Electronically viewed and signed by .Luciano Bauman MD, on 04/06/2017 17:39 .S/
[2017-04-06 18:30] LABS: BASOPHIL # 0.1 10^3/ul (0.0-0.1); EOSINOPHILS # 0.1 10^3/ul (0.0-0.5); HEMATOCRIT 33.7 % (37.0-47.0); HEMOGLOBIN 11.4 g/dl (12.0-16.0); LYMPHOCYTES % 37.6 % (15.0-51.0); MEAN CORPUSCULAR HEMOGLOBIN 30.2 pg (29.0-33.0); MEAN CORPUSCULAR HGB CONC 33.8 g/dl (32.0-37.0); MEAN CORPUSCULAR VOLUME 89.2 fl (82.0-101.0); MEAN PLATELET VOLUME 9.6 fl (7.4-10.4); MONOCYTE # 0.7 10^3/ul (0.3-0.9); MONOCYTES % 9.4 % (0.0-11.0); NEUTROPHILS % 50.7 % (39.0-77.0); PLATELET COUNT 222 10^3/UL (140-415); RED BLOOD COUNT 3.78 10^6/ul (4.20-5.40); WHITE BLOOD COUNT 7.9 10^3/ul (4.8-10.8)
[2017-04-06 18:48] LABS: ALANINE AMINOTRANSFERASE 38 IU/L (13-69); ALBUMIN 4.5 g/dl (3.3-4.9); ALBUMIN/GLOBULIN RATIO 1.18; ALKALINE PHOSPHATASE 172 IU/L (42-121); ANION GAP 18 (8-16); ASPARTATE AMINO TRANSFERASE 26 IU/L (15-46); BILIRUBIN,INDIRECT 0.7 mg/dl (0-1.1); BILIRUBIN,TOTAL 0.7 mg/dl (0.2-1.3); BLOOD UREA NITROGEN 27 mg/dl (7-20); CALCIUM 9.8 mg/dl (8.4-10.2); CARBON DIOXIDE 28 mmol/L (21-31); CHLORIDE 99 mmol/L (97-110); CREATININE 1.18 mg/dl (0.44-1.00); GLUCOSE 306 mg/dl (70-220); POTASSIUM 3.8 mmol/L (3.5-5.1); SODIUM 141 mmol/L (135-144); TOTAL PROTEIN 8.3 g/dl (6.1-8.1)
[2017-04-06 18:55] LABS: PT RATIO 1.1
[2017-04-06 18:56] LABS: PARTIAL THROMBOPLASTIN TIME 27.7 Sec (25.0-35.0)
[2017-04-06 19:00] LABS: TROPONIN-I < 0.012 ng/ml (0.00-0.12)
[2017-04-06 19:12] LABS: PROTIME 14.1 Sec (12.2-14.2)
[2017-04-06 19:13] LABS: INR 1.09
[2017-04-06 19:17] LABS: URINE BLOOD (Dip) POC 2+ (NEGATIVE)
[2017-04-06] MEDS ORDERED: CIPR500T4 PO (19:28)
[2017-04-06] MEDS ORDERED: CIPROFLOXACIN 500 MG TAB PO ONE (19:30)
[2017-04-06 19:38] VITALS: BP 150/74; PULSE 102; RESP 20
[2017-04-06 19:51] LABS: ADD UMIC YES; UR ASCORBIC ACID NEGATIVE (NEGATIVE); UR BACTERIA FEW /HPF (NONE SEEN); UR BILIRUBIN (Dip) NEGATIVE (NEGATIVE); UR BLOOD (Dip) 1+ mg/dL (NEGATIVE); UR BUDDING YEAST MANY /HPF (NONE SEEN); UR CLARITY TURBID (CLEAR); UR COLOR YELLOW (YELLOW); UR GLUCOSE (Dip) 3+ mg/dL (NEGATIVE); UR KETONES (Dip) NEGATIVE (NEGATIVE); UR LEUKOCYTE ESTERASE (Dip) 3+ Leu/ul (NEGATIVE); UR NITRITE (Dip) NEGATIVE (NEGATIVE); UR RBC 62 /HPF (0-5); UR SPECIFIC GRAVITY (Dip) 1.017 (1.003-1.030); UR TOTAL PROTEIN (Dip) 1+ mg/dl (NEGATIVE); UR UROBILINOGEN (Dip) NEGATIVE (NEGATIVE)
== END 2017-04-06 20:17 | disposition home or self-care (01) ==
LOC: E/R 15:34
DX: N39.0 Urinary tract infection, site not specified (principal); E86.0 Dehydration; D64.9 Anemia, unspecified; I10 Essential (primary) hypertension; J45.909 Unspecified asthma, uncomplicated; E11.9 Type 2 diabetes mellitus without complications; R07.9 Chest pain, unspecified; Z85.3 Personal history of malignant neoplasm of breast; Z79.4 Long term (current) use of insulin
CPT/HCPCS: 36415; 71010; 80053; 81001; 83605; 84484; 85025; 85610; 85730; 87040; 87086; 93005; 94664; J7030; Z7502; Z7610; 81003

== ENCOUNTER 2017-05-02 13:51 | Emergency (ER) | payer OTHER ==
[~2017-05-02] VITALS: Ht 142.2 cm; Wt 37.0 kg
[2017-05-02 14:13] VITALS: Ht 142.2 cm; Wt 37.0 kg
[2017-05-02] MEDS ORDERED: ONDANSETRON 4 MG INJ IV STA (14:38)
[2017-05-02] MEDS ORDERED: SOD CHLORIDE 0.9% 1,000 ML IV STA (14:38)
[2017-05-02 15:08] LABS: BASOPHIL # 0.1 10^3/ul (0.0-0.1); BASOPHILS % 0.7 % (0.0-2.0); EOSINOPHILS # 0.1 10^3/ul (0.0-0.5); EOSINOPHILS % 0.7 % (0.0-7.0); HEMATOCRIT 33.3 % (37.0-47.0); HEMOGLOBIN 11.6 g/dl (12.0-16.0); LYMPHOCYTES # 1.9 10^3/ul (0.8-2.9); LYMPHOCYTES % 21.4 % (15.0-51.0); MEAN CORPUSCULAR HEMOGLOBIN 31.2 pg (29.0-33.0); MEAN CORPUSCULAR HGB CONC 34.8 g/dl (32.0-37.0); MEAN CORPUSCULAR VOLUME 89.5 fl (82.0-101.0); MEAN PLATELET VOLUME 8.9 fl (7.4-10.4); MONOCYTE # 0.5 10^3/ul (0.3-0.9); MONOCYTES % 5.1 % (0.0-11.0); NEUTROPHIL # 6.3 10^3/ul (1.6-7.5); NEUTROPHILS % 71.8 % (39.0-77.0); PLATELET COUNT 233 10^3/UL (140-415); RED BLOOD COUNT 3.72 10^6/ul (4.20-5.40); RED CELL DISTRIBUTION WIDTH 11.5 % (11.5-14.5); WHITE BLOOD COUNT 8.7 10^3/ul (4.8-10.8)
--- NOTE | 2017-05-02 15:16 | RADRPT ---
PROCEDURE: XR Chest. CLINICAL INDICATION: Abdominal pain. TECHNIQUE: Single frontal view. COMPARISON: 04/06/2017. FINDINGS: There is a right internal jugular vein Port-A-Cath with the tip in the lower superior vena cava. The lungs are clear. The heart size is normal. There is no pleural effusion. There is no pneumothorax. IMPRESSION: 1. Right IJ Port-A-Cath. 2. Clear lungs. 3. Otherwise normal chest radiograph. RPTAT: QQ .Daniel Herrera MD, MD Date Time Electronically viewed and signed by .Daniel Herrera MD, MD on 05/02/2017 15:15 .R/
[2017-05-02 15:25] LABS: ALBUMIN 4.1 g/dl (3.3-4.9); CALCIUM 9.9 mg/dl (8.4-10.2); CREATININE 0.91 mg/dl (0.44-1.00); POTASSIUM 4.2 mmol/L (3.5-5.1); TOTAL PROTEIN 8.2 g/dl (6.1-8.1)
[2017-05-02 15:26] LABS: D-DIMER 290.45 ng/ml (<460)
[2017-05-02 15:28] LABS: ADD UMIC YES; UR ASCORBIC ACID NEGATIVE (NEGATIVE); UR BACTERIA FEW /HPF (NONE SEEN); UR BILIRUBIN (Dip) NEGATIVE (NEGATIVE); UR BLOOD (Dip) 1+ mg/dL (NEGATIVE); UR CLARITY CLOUDY (CLEAR); UR COLOR YELLOW (YELLOW); UR GLUCOSE (Dip) 3+ mg/dL (NEGATIVE); UR KETONES (Dip) TRACE mg/dL (NEGATIVE); UR LEUKOCYTE ESTERASE (Dip) 3+ Leu/ul (NEGATIVE); UR NITRITE (Dip) NEGATIVE (NEGATIVE); UR RBC 11 /HPF (0-5); UR SPECIFIC GRAVITY (Dip) 1.015 (1.003-1.030); UR SQUAMOUS EPITHELIAL CELL FEW /HPF (FEW); UR TOTAL PROTEIN (Dip) NEGATIVE (NEGATIVE); UR UROBILINOGEN (Dip) NEGATIVE (NEGATIVE)
[2017-05-02] MEDS ORDERED: LIDOCAINE 1% (MDV) 20 ML INJ SC ONE (16:00)
[2017-05-02] MEDS ORDERED: CEFTRIAXONE 1 GM/50 ML (PMX) 50 ML IVPB ONE (16:00)
[2017-05-02] MEDS ORDERED: SCOPOLAMINE 1.5 MG PATCH TRANSDERM ONE (16:00)
[2017-05-02] MEDS ORDERED: CEFTRIAXONE 1 GM INJ IM ONE (16:00)
--- NOTE | 2017-05-02 16:45 | RADRPT ---
PROCEDURE: CT Abdomen and Pelvis without contrast. CLINICAL INDICATION: Abdominal and pelvic pain. TECHNIQUE: CT scan of the abdomen and pelvis without contrast was performed. Coronal and sagittal reformatted images were obtained from the axial source images. Images were reviewed on a high-resolu [employer] PACS workstation. Total exam DLP is 109.47 mGy-cm. CTDIvol is 4.03 mGy. One or more of the fo [place] dose reduction techniques were used: Automated exposure control, adjustment of the mA and/or kV according to patient size, use of iterative reconstruction technique. DICOM images are available . COMPARISON: CT scan of the abdomen and pelvis without contrast dated 08/31/2016. FINDINGS: The lung bases are normal. There is no pleural effusion or pericardial effusion. There is coronary artery calcification. The heart size is normal. The liver is normal in size and diffusely decreased in attenuation. There is no focal hepatic lesio n. The gallbladder and bile ducts are normal. The spleen is normal in size. There is no focal splenic lesion. Both adrenals are normal with no enlargement or mass. The pancreas is unremarkable with no mass or evidence of pancreatitis. There is no renal mass. There is mild bilateral hydronephrosis. There is no renal calculus or urete ral calculus. The abdominal aorta is not dilated. Calcification is present in the aorta consistent with atheroscle rosis. There is no retroperitoneal lymphadenopathy or mass. There is no pelvic lymphadenopathy or mass. The bladder is distended but otherwise unremarkable. The periappendiceal region is unremarkable with no evidence of appendicitis. The appendix is well se en and appears normal. The bowel and mesentery are normal. There is no free fluid or free gas. The osseous structures are unremarkable with no fracture or lytic lesion. IMPRESSION: 1. Coronary artery calcification. 2. Mild bilateral hydronephrosis which may be due to a distended bladder. 3. Normal appendix. 4. No urinary tract calculus. 5. Otherwise unremarkable noncontrast CT scan of the abdomen and pelvis. RPTAT: QQ .Daniel Herrera MD, MD Date Time Electronically viewed and signed by .Daniel Herrera MD, MD on 05/02/2017 16:45 .R/
[2017-05-02] MEDS ORDERED: CIPR500T4 PO (16:49)
[2017-05-02 17:18] VITALS: BP 147/83; PULSE 76; RESP 18; TEMP 97.7
--- NOTE | 2017-05-02 18:03 | ERD ---
ER Documentation Chief Complaint Chief Complaint vomitting, headache x 2 days HPI 51-year-old female complaining of nausea with cough 1 week. Patient has a history of breast cancer and has completed treatment over one year ago. She is frequently seen by her oncologist, last appointment was 1 month ago. Patient is presenting with complaints of nausea and vomiting, dry cough and headaches. Denies dizziness. Denies chest pain. Denies shortness of breath. ROS All systems reviewed and are negative except as per history of present illness. Medications Home Meds Active Scripts Ciprofloxacin Hcl* (Ciprofloxacin Hcl*) 500 Mg Tablet, 500 MG PO BID for 7 Days , TAB Prov:LUPE LAUREN PA-C 05/02/17 Ciprofloxacin Hcl* (Ciprofloxacin Hcl*) 500 Mg Tablet, 500 MG PO BID for 7 Days , TAB Prov:EBONY PEÑA MD 04/06/17 Ciprofloxacin Hcl* (Ciprofloxacin Hcl*) 500 Mg Tablet, 500 MG PO BID for 3 Days , TAB Prov:EBONY PEÑA MD 04/06/17 Ibuprofen* (Motrin*) 600 Mg Tab, 600 MG PO Q6, #30 TAB Prov:JOHANA NEWMAN PA-C 01/25/17 Hydrocodone/Acetaminophen ([place] 5-325 Tablet) 1 Each Tablet, 1 TAB PO Q6H Y for PAIN, #15 TAB Prov:JOHANA NEWMAN PA-C 01/25/17 Phenazopyridine Hcl* (Pyridium*) 200 Mg Tab, 200 MG PO TID Y for URINARY PAIN, # 6 TAB Prov:DESIREE PEREIRA MD 01/16/17 Ibuprofen* (Motrin*) 600 Mg Tab, 600 MG PO Q8, #30 TAB Prov:DESIREE PEREIRA MD 01/16/17 Ondansetron (Ondansetron Odt) 4 Mg Tab.rapdis, 4 MG PO Q6H Y for NAUSEA AND/OR VOMITING, #30 TAB Prov:DESIREE PEREIRA MD 01/16/17 Ciprofloxacin Hcl* (Ciprofloxacin Hcl*) 500 Mg Tablet, 500 MG PO BID for 7 Days , TAB Prov:DESIREE PEREIRA MD 01/16/17 Cephalexin* (Cephalexin*) 500 Mg Capsule, 500 MG PO TID, #15 CAP Prov:BARB WHITE MD 09/01/16 Phenazopyridine Hcl* (Pyridium*) 100 Mg Tab, 100 MG PO TID, #15 TAB Prov:BARB WHITE MD 09/01/16 Metoprolol Tartrate* (Lopressor*) 25 Mg Tab, 12.5 MG PO BID, #60 TAB Prov:BARB WHITE MD 05/30/16 Salmeterol Xinaf-Fluticasone* (Advair*) 100/50 Diskus Inhaler, 1 INH INH BID for 30 Days Prov:DEJAN JEFFERSON 01/27/16 Montelukast Sodium* (Montelukast Sodium*) 10 Mg Tablet, 10 MG PO QHS for 30 Days , TAB Prov:DEJAN JEFFERSON 01/27/16 Insulin Glargine* (Lantus*) 100 Unit/Ml Soln, 17 UNIT SC QPM for 30 Days Prov:DEJAN JEFFERSON 01/27/16 Insulin Glargine* (Lantus*) 100 Unit/Ml Soln, 17 UNIT SC QAM for 30 Days Prov:DEJAN JEFFERSON 01/27/16 Ondansetron Hcl* (Zofran*) 4 Mg Tab, 4 MG PO Q4H Y for NAUSEA AND OR VOMITING, # 30 TAB Prov:DEJAN JEFFERSON 01/27/16 Docusate Sodium* (Colace*) 100 Mg Capsule, 100 MG PO BID Y for CONSTIPATION for 30 Days, #60 CAP Prov:URI GARRIDO S. 12/08/15 Calcium Carbonate* (Tums*) 500 Mg Tab.chew, 1000 MG PO Q4 Y for HEARTBURN for 30 Days, TAB.CHEW Prov:URI GARRIDO S. 12/08/15 Reported Medications [Lantus] No Conflict Check 02/04/17 [Heart Medication] No Conflict Check 02/04/17 [Docyclomide] No Conflict Check 02/04/17 [Blood Pressure] No Conflict Check 02/04/17 Pregabalin* (Lyrica*) 75 Mg Capsule, 75 MG PO BID, CAP 05/29/16 Famotidine* (Famotidine*) 20 Mg Tablet, 20 MG PO DAILY, #30 TAB 05/29/16 Hydrocodone/Acetaminophen ([place] 10-325 Tablet) 1 Each Tablet, 1 EACH PO Q6 Y for PAIN, TAB 05/29/16 Sertraline Hcl* (Zoloft*) 100 Mg Tablet, 100 MG PO DAILY, #30 TAB 05/29/16 Megestrol Acetate* (Megestrol Acetate*) 40 Mg Tablet, 40 MG PO DAILY, TAB 05/29/16 Folic Acid* (Folic Acid*) 1 Mg Tablet, 1 MG PO DAILY, TAB 05/29/16 Alprazolam* (Xanax*) 0.25 Mg Tablet, 0.25 MG PO TID Y for ANXIETY, TAB 12/02/15 Ipratropium-Albuterol (Ipratropium-Albuterol) 0.5-3 Mg/3 Ml Ampul.neb, 3 ML INHALATION Q4 Y for SHORTNESS OF BREATH, #30 VIAL 12/02/15 Acetaminophen* (Acetaminophen*) 650 Mg Tablet, 650 MG PO Q4 Y for FEVER, #30 TAB 12/02/15 Loratadine* (Loratadine*) 10 Mg Tablet, 10 MG PO DAILY, #30 TAB 12/02/15 Allergies Allergies: Coded Allergies: No Known Allergy (Unverified , 12/18/15) PMhx/Soc Medical and Surgical Hx: pt denies Medical Hx, pt denies Surgical Hx History of Surgery: Yes (LEFT BREAAST CANCER, TOE AMPUTATION, C SECTION) Anesthesia Reaction: No Hx Neurological Disorder: No Hx Respiratory Disorders: Yes (ASTHMA) Hx Cardiac Disorders: Yes (HTN) Hx Psychiatric Problems: No Hx Miscellaneous Medical Probl: No Hx Alcohol Use: No Hx Substance Use: No Hx Tobacco Use: No Smoking Status: Never smoker Physical Exam Vitals Vital Signs Date Time Temp Pulse Resp B/P Pulse Ox O2 Delivery O2 Flow Rate FiO2 05/02/17 17:18 97.7 76 18 147/83 99 Room Air 05/02/17 14:13 97.1 112 19 167/81 99 Physical Exam GENERAL: The patient is well-appearing, well-nourished, in no acute distress HEENT: Atraumatic. Conjunctivae are pink. Pupils equal, round, and reactive to light. There is no scleral icterus. Tympanic membranes clear bilaterally. Oropharynx clear. No nystagmus or photophobia. NECK: C-spine is soft and supple. There is no meningismus. There is no cervical lymphadenopathy. No JVD. No bruits. No goiter. CHEST: Clear to auscultation bilaterally. There are no rales, wheezes or rhonchi. HEART: Regular rate and rhythm. No murmurs, clicks, rubs or gallops. No S3 or S4. ABDOMEN: Mild generalized abdominal pain. No rebound tenderness. No focal tenderness on palpation. Normal active bowel sounds. No distention. No organomegaly. BACK: No midline or flank tenderness. EXTREMITIES: Equal pulses bilaterally. There is no peripheral clubbing, cyanosis or edema. No focal swelling or erythema. Full range of motion. Grossly neurovascularly intact. NEUROLOGIC: Alert and oriented. Cranial nerves II through XII intact. Motor strength in all 4 extremities with 5 out of 5 strength. Sensation grossly intact. Normal speech and gait. Babinski negative. DTR 2+ throughout. SKIN: There is no apparent rash or petechiae. The skin is warm and dry. HEMATOLOGIC AND LYMPHATIC: There is no evidence of excessive bruising or lymphadenopathy. No gross cervical, axillary, or inguinal lymphadenopathy. Result Diagram: 05/02/17 1459 05/02/17 1459 Results 24 hrs Laboratory Tests Test 05/02/17 14:59 05/02/17 15:02 White Blood Count 8.710^3/ul Red Blood Count 3.7210^6/ul Hemoglobin 11.6g/dl Hematocrit 33.3% Mean Corpuscular Volume 89.5fl Mean Corpuscular Hemoglobin 31.2pg Mean Corpuscular Hemoglobin Concent 34.8g/dl Red Cell Distribution Width 11.5% Platelet Count 91866^3/UL Mean Platelet Volume 8.9fl Neutrophils % 71.8% Lymphocytes % 21.4% Monocytes % 5.1% Eosinophils % 0.7% Basophils % 0.7% Nucleated Red Blood Cells % 0.0/100WBC Neutrophils # 6.310^3/ul Lymphocytes # 1.910^3/ul Monocytes # 0.510^3/ul Eosinophils # 0.110^3/ul Basophils # 0.110^3/ul Nucleated Red Blood Cells # 0.010^3/ul D-Dimer 290.45ng/ml D-Dimer Comment Sodium Level 139mmol/L Potassium Level 4.2mmol/L Chloride Level 99mmol/L Carbon Dioxide Level 29mmol/L Anion Gap 15 Blood Urea Nitrogen 21mg/dl Creatinine 0.91mg/dl Glucose Level 266mg/dl Calcium Level 9.9mg/dl Total Bilirubin 1.0mg/dl Direct Bilirubin 0.00mg/dl Indirect Bilirubin 1.0mg/dl Aspartate Amino Transf (AST/SGOT) 24IU/L Alanine Aminotransferase (ALT/SGPT) 36IU/L Alkaline Phosphatase 144IU/L Total Protein 8.2g/dl Albumin 4.1g/dl Globulin 4.10g/dl Albumin/Globulin Ratio 1.00 Lipase 33U/L Urine Color YELLOW Urine Clarity CLOUDY Urine pH 6.0 Urine Specific [place] 1.015 Urine Ketones TRACEmg/dL Urine Nitrite NEGATIVEmg/dL Urine Bilirubin NEGATIVEmg/dL Urine Urobilinogen NEGATIVEmg/dL Urine Leukocyte Esterase 3+Rupesh/ul Urine Microscopic RBC 11/HPF Urine Microscopic WBC > 182/HPF Urine Squamous Epithelial Cells FEW/HPF Urine Bacteria FEW/HPF Urine Hemoglobin 1+mg/dL Urine Glucose 3+mg/dL Urine Total Protein NEGATIVEmg/dl Current Medications Medications (Trade) Dose Ordered Sig/Muna Route PRN Reason Start Time Stop Time Status Last Admin Dose Admin Sodium Chloride (NS) 1,000 ml @ 1,000 mls/hr Q1H STAT IV 05/02/17 14:38 05/02/17 15:43 DC 05/02/17 15:11 Ondansetron HCl (Zofran Inj) 4 mg ONCE STAT IV 05/02/17 14:38 05/02/17 14:41 DC 05/02/17 15:11 Ceftriaxone Sodium (Rocephin) 1 gm ONCE ONCE IM 05/02/17 16:00 05/02/17 16:00 DC Lidocaine 20 ml 20 ml ONCE ONCE SC 05/02/17 16:00 05/02/17 16:00 DC Ceftriaxone Sodium (Rocephin) 50 ml @ 100 mls/hr ONCE ONCE IVPB 05/02/17 16:00 05/02/17 16:29 DC 05/02/17 16:42 Scopolamine (Transderm-Scop) 1 patch ONCE ONCE TRANSDERM 05/02/17 16:00 05/02/17 16:01 DC 05/02/17 16:42 Procedures/MDM DIAGNOSTIC IMAGING REPORT Patient: YONATAN CUTLER : 1965 Age: 51 Sex: F MR #: [id number] DOS: 05/02/17 1547 Ordering MD: SUNDAY LAUREN PA-C Location: [facility] Room/Bed: PROCEDURE: CT Abdomen and Pelvis without contrast. CLINICAL INDICATION: Abdominal and pelvic pain. TECHNIQUE: CT scan of the abdomen and pelvis without contrast was performed. Coronal and sagittal reformatted images were obtained from the axial source images. Images were reviewed on a high-resolution PACS workstation. Total exam DLP is 109.47 mGy-cm. CTDIvol is 4.03 mGy. One or more of the following dose reduction techniques were used: Automated exposure control, adjustment of the mA and/or kV according to patient size, use of iterative reconstruction technique. DICOM images are available. COMPARISON: CT scan of the abdomen and pelvis without contrast dated 2016. FINDINGS: The lung bases are normal. There is no pleural effusion or pericardial effusion. There is coronary artery calcification. The heart size is normal. The liver is normal in size and diffusely decreased in attenuation. There is no focal hepatic lesion. The gallbladder and bile ducts are normal. The spleen is normal in size. There is no focal splenic lesion. Both adrenals are normal with no enlargement or mass. The pancreas is unremarkable with no mass or evidence of pancreatitis. There is no renal mass. There is mild bilateral hydronephrosis. There is no renal calculus or ureteral calculus. The abdominal aorta is not dilated. Calcification is present in the aorta consistent with atherosclerosis. There is no retroperitoneal lymphadenopathy or mass. There is no pelvic lymphadenopathy or mass. The bladder is distended but otherwise unremarkable. The periappendiceal region is unremarkable with no evidence of appendicitis. The appendix is well seen and appears normal. The bowel and mesentery are normal. There is no free fluid or free gas. The osseous structures are unremarkable with no fracture or lytic lesion. IMPRESSION: 1. Coronary artery calcification. 2. Mild bilateral hydronephrosis which may be due to a distended bladder. 3. Normal appendix. 4. No urinary tract calculus. 5. Otherwise unremarkable noncontrast CT scan of the abdomen and pelvis. DIAGNOSTIC IMAGING REPORT Patient: YONATAN CUTLER : 1965 Age: 51 Sex: F MR #: [id number] DOS: 05/02/17 1438 Ordering MD: SUNDAY LAUREN PA-C Location: [facility] Room/Bed: PROCEDURE: XR Chest. CLINICAL INDICATION: Abdominal pain. TECHNIQUE: Single frontal view. COMPARISON: 04/06/2017. FINDINGS: There is a right internal jugular vein Port-A-Cath with the tip in the lower superior vena cava. The lungs are clear. The heart size is normal. There is no pleural effusion. There is no pneumothorax. IMPRESSION: 1. Right IJ Port-A-Cath. 2. Clear lungs. 3. Otherwise normal chest radiograph. ER Course: 1 L normal saline with a gram of Rocephin IV given in ED. MDM: I have low suspicion for pneumonia. I have low suspicion for PE. I have low suspicion for acute abdominal etiology. I have low suspicion for pyelonephritis. Patient's vital signs are stable and patient does not have CVA tenderness on exam. Patient does have findings of UTI and I will treat with antibiotics. Patient is tolerating p.o.'s in the ED with normal blood work so I do not feel there is indication for admission at this time. Patient is discharged with strict ER precautions and recommended to follow-up with primary care within 1-2 days for close evaluation. Patient is told if symptoms change or worsen to return to the ER. All questions answered discharge Departure Diagnosis: Primary Impression: Vomiting Condition: Stable Patient Instructions: Vomiting (6Y-Adult) Referrals: FARIHA LAGUERRE (PCP) Additional Instructions: FOLLOW UP WITH YOUR PRIMARY CARE PHYSICIAN TOMORROW.Return to this facility if you are not improving as expected. LUPE LAUREN PA-C May 02, 2017 18:03
== END 2017-05-02 17:15 | disposition home or self-care (01) ==
LOC: FTE 13:51
DX: R11.10 Vomiting, unspecified (principal); J45.909 Unspecified asthma, uncomplicated; I10 Essential (primary) hypertension; Z79.4 Long term (current) use of insulin; Z85.3 Personal history of malignant neoplasm of breast
CPT/HCPCS: 36415; 71010; 74176; 80053; 81001; 83690; 85025; 85378; 87086; 96374; 96375; J0696; J2405; J7030; Z7502; Z7610

== ENCOUNTER 2018-01-10 18:07 | Inpatient (IN) | END 2018-01-15 16:41 | disposition home or self-care (01) | DRG 871 ==

== ENCOUNTER 2018-03-16 12:15 | Emergency (ER) | END 2018-03-16 13:39 | disposition home or self-care (01) ==

== ENCOUNTER 2018-04-28 06:25 | Emergency (ER) | END 2018-04-28 09:50 | disposition home or self-care (01) ==

== ENCOUNTER 2018-10-21 15:20 | Emergency (ER) | payer OTHER ==
[~2018-10-21] VITALS: Ht 147.3 cm; Wt 39.7 kg
[~2018-10-21 15:20] MED LIST changes: -ACET-2047 PO; -ADV10050 INH; +ALBU18HF INHALATION; +ALEN70TA5 PO; -ALPR0.25 PO; -BLOOD PRESSURE; -CALC200T PO; -CEPH500C PO; -DOCU-144 PO; -FAMO20TA18 PO; +FER325 PO; +FLUT1AER INHALATION; -FOLI-49 PO; -HEART MEDICATION; +HYDR-3980 PO; -HYDR-902 PO; -HYDR-906 PO; -IBUP-1542 PO; +INSU100V3 IJ; -IPRA3AMP INHALATION; +L.AC460C PO; -LANTUS; +LEVO750T25 PO; -LORA10TA3 PO; -MEGE40TA17 PO; -METO-448 PO; +MIRT30TA5 PO; -MONT10TA24 PO; +MORP15TA92 PO; -ONDA-43 PO; -ONDA4TAB14 PO; -PHEN-538 PO; -SERT100T PO; +TRAM50TA2 PO; +UDMOM PO; -[UNRECOGNIZED DRUG - OTHER]
[2018-10-21 15:28] VITALS: BP 93/51; PULSE 104; RESP 20; Ht 147.3 cm; Wt 39.7 kg
[2018-10-21] MEDS ORDERED: ACETAMINOPHEN 500 MG TAB PO STA (15:57)
[2018-10-21] MEDS ORDERED: ACET500C5 PO (17:21)
[2018-10-21] MEDS ORDERED: CEPH-443 PO (17:21)
--- NOTE | 2018-10-21 17:40 | ERD ---
ER Documentation Chief Complaint Chief Complaint left ankle pain/injury HPI Patient is a 53-year-old female, type II diabetic, who presents the ER for concerns of left ankle pain. Patient states she rolled her ankle 3 days ago while walking off the sidewalk. Patient states she has a history of chronic ankle pain and has had MRIs in the past. Last MRI was 9 months ago. Patient states she takes Fortine for her chronic ankle pain. Patient also has concerns of UTI symptoms. Patient states she has had dysuria, frequency and urgency. Patient denies any fevers or chills. No recent travel. ROS All systems reviewed and are negative except as per history of present illness. Medications Home Meds Active Scripts Acetaminophen* (Tylophen*) 500 Mg Capsule, 1 CAP PO Q6H PRN for PAIN AND OR ELEVATED TEMP, #20 CAP Prov:ELIZA MASSEY PA-C 10/21/18 Cephalexin* (Keflex*) 500 Mg Capsule, 500 MG PO TID for 7 Days, CAP Prov:ELIZA MASSEY PA-C 10/21/18 Phenazopyridine Hcl* (Pyridium*) 100 Mg Tab, 100 MG PO TID PRN for URINARY PAIN, #5 TAB Prov:JUSTINO LESLIE. CASTING REPAIRER 04/28/18 Ciprofloxacin Hcl* (Ciprofloxacin Hcl*) 500 Mg Tablet, 500 MG PO BID for 10 Days, TAB Prov:JUSTINO LESLIE CASTING REPAIRER 04/28/18 Tramadol HCl (Tramadol HCl) 50 Mg Tablet, 50 MG PO Q4 PRN for PAIN, #20 TAB Prov:LUPE LAUREN PA-C 03/16/18 Levofloxacin* (Levaquin*) 750 Mg Tablet, 750 MG PO DAILY for 12 Days, #12 TAB Prov:URI GARRIDO S. 01/14/18 Magnesium Hydroxide* (Roblero' MOM*) 30 Ml Susp, 30 ML PO DAILY PRN for CONSTIPATION, #1 BOTTLE 1 Refill Prov:URI GARRIDO S. 01/14/18 L Acidophil/B Lactis/B Longum (FLORAJEN3 CAPSULE) 460 Mg Capsule, 1 EACH PO BID, #60 CAP 2 Refills Prov:URI GARRIDO S. 01/14/18 Reported Medications Ferrous Sulfate* (Ferrous Sulfate*) 325 Mg Tabec, 325 MG PO DAILY, TAB 7/30/18 Albuterol Sulfate* (Ventolin HFA*) 18 Gm Hfa.aer.ad, 2 PUFF INHALATION Q4H, #1 INHALER 01/10/18 Fluticasone-Vilanterol (Breo Ellipta Inhaler) 100-25 Mcg/Actuation Aer.pow.ba, 1 PUFF INHALATION DAILY, #1 INHALER 01/10/18 Hydrocodone/Acetaminophen (Fortine 10-325 Tablet) 1 Each Tablet, 1 EACH PO NEEDED, TAB 01/10/18 Morphine Sulfate* (Ms Contin*) 15 Mg Tablet.sa, 15 MG PO NEEDED, TAB 01/10/18 Pregabalin* (Lyrica*) 75 Mg Capsule, 75 MG PO BID, CAP 01/10/18 Mirtazapine* (Mirtazapine*) 30 Mg Tablet, 30 MG PO DAILY, TAB 01/10/18 Insulin Glargine* (Lantus*) 100 Unit/Ml Soln, 17 UNIT SC BID, #1 VIAL 01/10/18 Alendronate Sodium* (Fosamax*) 70 Mg Tablet, 70 MG PO Q THURS, #4 TAB 01/10/18 Insulin Regular, Human (Humulin R) 100 Unit/1 Ml Vial, 0 IJ SLIDING SCALE, VIAL 01/10/18 Allergies Allergies: Coded Allergies: No Known Allergy (Unverified , 01/10/18) PMhx/Soc History of Surgery: Yes (, Left breast lumpectomy, Toe amputation) Anesthesia Reaction: No Hx Neurological Disorder: No Hx Respiratory Disorders: Yes (COPD, asthma) Hx Cardiac Disorders: Yes (HTN, HCL) Hx Psychiatric Problems: No Hx Miscellaneous Medical Probl: Yes (DM) Hx Alcohol Use: No Hx Substance Use: No Hx Tobacco Use: No FmHx Family History: No diabetes Physical Exam Vitals Vital Signs Date Temp Pulse Resp B/P (MAP) Pulse Ox O2 O2 Flow FiO2 Time Delivery Rate 10/21/18 97.4 104 20 93/51 (65) 99 15:28 Physical Exam GENERAL: Well-developed, well-nourished male. Appears in no acute distress. HEAD: Normocephalic, atraumatic. EYES: Pupils are equally reactive bilaterally. EOMs grossly intact. No conjunctival erythema. NECK: Supple. No meningismus. Normal range of motion of the neck. LUNG: Clear to auscultation bilaterally. No rhonchi, wheezing, rales or coarse breath sounds. HEART: Regular rate and rhythm. No murmurs, rubs or gallops. EXTREMITIES: Equal pulses bilaterally. No peripheral clubbing, cyanosis or edema. No unilateral leg swelling. NEUROLOGIC: Alert and oriented. Moving all four extremities without any difficulty. SKIN: Normal color. Warm and dry. No rashes or lesions. LLE: No obvious deformity. Mild swelling noted to the lateral aspect of the ankle and dorsal foot. Skin intact. Decreased range of motion of ankle secondary to pain. Nontender to palpation of the proximal fibula. Sensation is intact to light touch. Neurovascular intact. Normal pulses. Results 24 hrs Laboratory Tests Test 10/21/18 16:15 10/21/18 16:16 Bedside Urine pH (LAB) 5.5 Bedside Urine Protein (LAB) 1+ Bedside Urine Glucose (UA) Negative Bedside Urine Ketones (LAB) Negative Bedside Urine Blood 2+ Bedside Urine Nitrite (LAB) Negative Bedside Urine Leukocyte Esterase (L 3+ POC Beta HCG, Qualitative NEGATIVE Current Medications Medications Dose Sig/Muna Start Time Status Last (Trade) Ordered Route PRN Stop Time Admin Dose Reason Admin 1,000 mg ONCE STAT 10/21/18 DC 10/21/18 Acetaminophen PO 15:57 16:25 (Tylenol 10/21/18 15:58 Tab) Procedures/MDM ED COURSE: The patient was stable throughout ED course. I kept the patient and/or family informed of laboratory and diagnostic imaging results throughout the ED course. DIAGNOSTIC IMAGING: Read by radiologist. DIAGNOSTIC IMAGING REPORT Patient: YONATAN CUTLER : 1965 Age: 53 Sex: F MR #: [id number] DOS: 10/21/18 1547 Ordering MD: ELIZA MASSEY PA-C Location: [facility] Room/Bed: PROCEDURE: XR Left Ankle. CLINICAL INDICATION: Pain TECHNIQUE: AP, oblique and lateral views of the left ankle were performed. COMPARISON: March 16, 2018 FINDINGS: There is normal mineralization and alignment. No acute fracture or osseous lesion is identified. The joints are normal. There is new diffuse soft tissue swelling and a small ankle effusion. Benign, atherosclerotic, vascular calcifications are also noted. IMPRESSION: No acute fracture or dislocation. New diffuse soft tissue swelling and a small ankle effusion. Benign, atherosclerotic, vascular calcifications. RPTAT: EE .Billie Canela MD, Date Time Electronically viewed and signed by .Billie Canela MD, MD on 10/21/2018 17:12 .F/ CC: ELIZA MASSEY PA-C [id number] SPLINT APPLICATION: The patient was verbally consented at bedside prior to splint application. Patient was explained the risks, benefits and alternatives to this procedure. The patient was neurovascularly intact prior to and status post application of the splint. The patient tolerated the procedure well with no complications. Splint type: JASE wrap Extremity: left ankle Indication: No acute fracture or dislocation. New diffuse soft tissue swelling and a small ankle effusion. Benign, atherosclerotic, vascular calcifications. MEDICAL DECISION MAKING: This is a 53-year-old female, type II diabetic, presents the ER for concerns of left ankle pain and UTI symptoms. Vital signs were reviewed. Patient was afebrile. X-ray imaging showed no acute fractures or dislocations. New diffuse soft tissue swelling and small ankle effusion noted. Patient was placed in Jase wrap. Patient advised to follow-up with edi specialist. UA did show 3+ leukocyte esterase. Patient will be discharged home with prescription for Keflex. Patient advised to drink plenty of fluids and stay hydrated. Strict DM medication compliance advised. At this time, patient presentation most consistent with ankle sprain and UTI. Low suspicion for fracture, dislocation,or compartment syndrome. Unable to rule any ligament or tendon injuries. Patient advised to follow-up with edi specialist for further management of her symptoms. Low suspicion for pyelonephritis or nephrolithiasis. Low suspicion for urosepsis. Patient was nontoxic, [id number] prior to discharge. PRESCRIPTIONS: Keflex, Tylenol DISCHARGE: At this time, patient is stable for discharge and outpatient management. I have instructed the patient to follow-up with his/her primary care physician in 1-2 days. I have discussed with the patient the possibility of needing to see an ort hopedic specialist for further workup and imaging if the pain persists. I have instructed the patient to promptly return to the ER for any new or worsening symptoms including increased pain, swelling, redness, warmth or fever. The patient and/or family expressed understanding of and agreement with this plan. All questions were answered. Home care instructions were provided. Disclaimer: Inadvertent spelling and grammatical errors are likely due to EHR/dictation software use and do not reflect on the overall quality of patient care. Also, please note that the electronic time recorded on this note does not necessarily reflect the actual time of the patient encounter. Departure Diagnosis: Primary Impression: UTI (urinary tract infection) Urinary tract infection type: site unspecified Hematuria presence: without hematuria Qualified Codes: N39.0 - Urinary tract infection, site not speci fied Additional Impression: Ankle pain Chronicity: unspecified Laterality: unspecified laterality Qualified Codes: M25.579 - Pain in unspecified ankle and joints of unspecified foot Condition: Fair Patient Instructions: Understanding Urinary Tract Infections (UTIs), Sprain, Ankle, With X-Ray Referrals: [facility] YOU HAVE RECEIVED A MEDICAL SCREENING EXAM AND THE RESULTS INDICATE THAT YOU DO NOT HAVE A CONDITION THAT REQUIRES URGENT TREATMENT IN THE EMERGENCY DEPARTMENT. FURTHER EVALUATION AND TREATMENT OF YOUR CONDITION CAN WAIT UNTIL YOU ARE SEEN IN YOUR DOCTORS OFFICE WITHIN THE NEXT 1-2 DAYS. IT IS YOUR RESPONSIBILITY TO MAKE AN APPOINTMENT FOR FOLOW-UP CARE. IF YOU HAVE A PRIMARY DOCTOR --you should call your primary doctor and schedule an appointment IF YOU DO NOT HAVE A PRIMARY DOCTOR YOU CAN CALL OUR PHYSICIAN REFERRAL HOTLINE AT IF YOU CAN NOT AFFORD TO SEE A PHYSICIAN YOU CAN CHOSE FROM THE FOLLOWING [facility] [address] [facility] [address] [facility] [facility] [address] [facility] [address] [facility] [address] [facility]. [facility]. [address] [facility] YOU HAVE RECEIVED A MEDICAL SCREENING EXAM AND THE RESULTS INDICATE THAT YOU DO NOT HAVE A CONDITION THAT REQUIRES URGENT TREATMENT IN THE EMERGENCY DEPARTMENT. FURTHER EVALUATION AND TREATMENT OF YOUR CONDITION CAN WAIT UNTIL YOU ARE SEEN IN YOUR DOCTORS OFFICE WITHIN THE NEXT 1-2 DAYS. IT IS YOUR RESPONSIBILITY TO MAKE AN APPOINTMENT FOR FOLOW-UP CARE. IF YOU HAVE A PRIMARY DOCTOR --you should call your primary doctor and schedule and appointment IF YOU DO NOT HAVE A PRIMARY DOCTOR YOU CAN CALL OUR PHYSICIAN REFERRAL HOTLINE AT . IF YOU CAN NOT AFFORD TO SEE A PHYSICIAN YOU CAN CHOSE FROM THE FOLLOWING [facility] INSTITUTIONS: [facility] [address] [place] [address] [facility] [address] [place] [address] [facility] [address] [place] [address] Additional Instructions: Call your primary care doctor TOMORROW for an appointment during the next 1-2 days.See the doctor sooner or return here if your condition worsens before your appointment time. ELIZA MASSEY PA-C October 21, 2018 17:40
== END 2018-10-21 18:03 | disposition home or self-care (01) ==
LOC: FTE 15:20
DX: M25.572 Pain in left ankle and joints of left foot (principal); N39.0 Urinary tract infection, site not specified; E11.9 Type 2 diabetes mellitus without complications; I10 Essential (primary) hypertension; J44.9 Chronic obstructive pulmonary disease, unspecified; Z79.4 Long term (current) use of insulin
CPT/HCPCS: 73610; 81003; 81025; Z7502; Z7610

== ENCOUNTER 2018-10-23 17:38 | Emergency (ER) | payer OTHER ==
[~2018-10-23] VITALS: Ht 160 cm; Wt 40.5 kg
[~2018-10-23 17:38] MED LIST changes: +ACET500C5 PO; +CEPH-443 PO
[2018-10-23 17:41] VITALS: BP 140/73; PULSE 102; RESP 18; Ht 160 cm; Wt 40.5 kg
[2018-10-23] MEDS ORDERED: HYDROCODONE/APAP (5/325) TAB PO ONE (18:30)
--- NOTE | 2018-10-23 19:13 | ERD ---
ER Documentation Chief Complaint Chief Complaint left ankle pain & swelling fell 2 days ago, heard a pop today weigh barichucky NAVAS Patient is a 53-year-old diabetic female who presents to the ER for concerns of left ankle pain and swelling. Patient states she was walking today, tripped and "heard a pop." Patient states she did not land on floor because her friend caught her. Patient states pain is localized to the heel of the foot. Patient was seen here 2 days ago and had x-ray imaging done at that time. X-ray imaging was negative for acute fracture or dislocation. Patient was placed in an Jase wrap and advised to follow-up with teaching specialists. Patient states she continues to have pain with ambulation. Patient also states Tylenol is not helping with her pain. ROS All systems reviewed and are negative except as per history of present illness. Medications Home Meds Active Scripts Naloxone HCl nasal spray (Narcan 4 mg/0.1 mL nasal) 4 Mg [place], 4 MG NS .Q2MIN PRN for OPIOID OVERDOSE, #2 SPRAY [place] entire contents in one nostril, may repeat in alternate nostril in 2-3 minutes if no or minimal response Prov:ELIZA MASSEY PA-C 10/23/18 Tramadol HCl (Tramadol HCl) 50 Mg Tablet, 50 MG PO Q6 PRN for PAIN, #10 TAB Prov:ELIZA MASSEY PA-C 10/23/18 Acetaminophen* (Tylophen*) 500 Mg Capsule, 1 CAP PO Q6H PRN for PAIN AND OR ELEVATED TEMP, #20 CAP Prov:ELIZA MASSEY PA-C 10/21/18 Cephalexin* (Keflex*) 500 Mg Capsule, 500 MG PO TID for 7 Days, CAP Prov:ELIZA MASSEY PA-C 10/21/18 Phenazopyridine Hcl* (Pyridium*) 100 Mg Tab, 100 MG PO TID PRN for URINARY PAIN, #5 TAB Prov:JUSTINO LESLIE NP 04/28/18 Ciprofloxacin Hcl* (Ciprofloxacin Hcl*) 500 Mg Tablet, 500 MG PO BID for 10 Days, TAB Prov:JUSTINO LESLIE NP 04/28/18 Tramadol HCl (Tramadol HCl) 50 Mg Tablet, 50 MG PO Q4 PRN for PAIN, #20 TAB Prov:LUPE LAUREN PA-C 03/16/18 Levofloxacin* (Levaquin*) 750 Mg Tablet, 750 MG PO DAILY for 12 Days, #12 TAB Prov:URI GARRIDO S. 01/14/18 Magnesium Hydroxide* (Roblero' MOM*) 30 Ml Susp, 30 ML PO DAILY PRN for CONSTIPATION, #1 BOTTLE 1 Refill Prov:URI GARRIDO S. 01/14/18 L Acidophil/B Lactis/B Longum (FLORAJEN3 CAPSULE) 460 Mg Capsule, 1 EACH PO BID, #60 CAP 2 Refills Prov:URI GARRIDO S. 01/14/18 Reported Medications Ferrous Sulfate* (Ferrous Sulfate*) 325 Mg Tabec, 325 MG PO DAILY, TAB 01/10/18 Albuterol Sulfate* (Ventolin HFA*) 18 Gm Hfa.aer.ad, 2 PUFF INHALATION Q4H, #1 INHALER 01/10/18 Fluticasone-Vilanterol (Breo Ellipta Inhaler) 100-25 Mcg/Actuation Aer.pow.ba, 1 PUFF INHALATION DAILY, #1 INHALER 01/10/18 Hydrocodone/Acetaminophen ([place] 10-325 Tablet) 1 Each Tablet, 1 EACH PO NEEDED, TAB 01/10/18 Morphine Sulfate* (Ms Contin*) 15 Mg Tablet.sa, 15 MG PO NEEDED, TAB 01/10/18 Pregabalin* (Lyrica*) 75 Mg Capsule, 75 MG PO BID, CAP 01/10/18 Mirtazapine* (Mirtazapine*) 30 Mg Tablet, 30 MG PO DAILY, TAB 01/10/18 Insulin Glargine* (Lantus*) 100 Unit/Ml Soln, 17 UNIT SC BID, #1 VIAL 01/10/18 Alendronate Sodium* (Fosamax*) 70 Mg Tablet, 70 MG PO Q THURS, #4 TAB 01/10/18 Insulin Regular, Human (Humulin R) 100 Unit/1 Ml Vial, 0 IJ SLIDING SCALE, VIAL 01/10/18 Allergies Allergies: Coded Allergies: No Known Allergy (Unverified , 01/10/18) PMhx/Soc History of Surgery: Yes (, Left breast lumpectomy, Toe amputation) Anesthesia Reaction: No Hx Neurological Disorder: No Hx Respiratory Disorders: Yes (COPD, asthma) Hx Cardiac Disorders: Yes (HTN, HCL) Hx Psychiatric Problems: No Hx Miscellaneous Medical Probl: Yes (DM) Hx Alcohol Use: No Hx Substance Use: No Hx Tobacco Use: No Smoking Status: Never smoker FmHx Family History: diabetes Physical Exam Vitals Vital Signs Date Temp Pulse Resp B/P (MAP) Pulse Ox O2 O2 Flow FiO2 Time Delivery Rate 10/23/18 98.6 102 18 140/73 99 17:41 (95) Physical Exam GENERAL: Well-developed, well-nourished male. Appears in no acute distress. HEAD: Normocephalic, atraumatic. EYES: Pupils are equally reactive bilaterally. EOMs grossly intact. No conjunctival erythema. NECK: Supple. No meningismus. Normal range of motion of the neck. LUNG: Clear to auscultation bilaterally. No rhonchi, wheezing, rales or coarse breath sounds. HEART: Regular rate and rhythm. No murmurs, rubs or gallops. EXTREMITIES: Equal pulses bilaterally. No peripheral clubbing, cyanosis or edema. No unilateral leg swelling. NEUROLOGIC: Alert and oriented. Moving all four extremities without any difficulty. SKIN: Normal color. Warm and dry. No rashes or lesions. LLE: No obvious deformity. Swelling noted throughout the dorsal foot and the bilateral ankle. Skin is intact. Decreased range of motion of the ankle secondary to pain. Tender to palpation on the posterior heel. Nontender to palpation of the proximal tibia/fibula, midfoot, fifth metatarsal. Sensation is intact to light touch. Neurovascular intact. Normal pulses. Results 24 hrs Current Medications Medications Dose Sig/Muna Start Time Status Last (Trade) Ordered Route PRN Stop Time Admin Dose Reason Admin 1 tab ONCE ONCE 10/23/18 DC 10/23/18 Acetaminophen PO 18:30 18:27 / 10/23/18 18:31 Hydrocodone Bitart ([place] (5325)) Procedures/MDM ED COURSE: The patient was stable throughout ED course. I kept the patient and/or family informed of laboratory and diagnostic imaging results throughout the ED course. DIAGNOSTIC IMAGING: Read by radiologist. DIAGNOSTIC IMAGING REPORT Patient: YONATAN CUTLER : 1965 Age: 53 Sex: F MR #: [id number] DOS: 10/23/181808 Ordering MD: ELIZA MASSEY PA-C Location: [facility] Room/Bed: PROCEDURE: XR Ankle. CLINICAL INDICATION: Pain TECHNIQUE: AP, oblique and lateral views of the left ankle were performed. COMPARISON: DR ANDERSON 10/21/2018 FINDINGS: There is normal mineralization and alignment. There is an avulsion fracture of the posterior calcaneus. There is evidence of vascular calcification. The joints are normal. There is associated soft tissue swelling. RPTAT: AA IMPRESSION: Avulsion fracture of the posterior superior aspect of the calcaneus. .Luciano Bauman MD, MD Date Time Electronically viewed and signed by .Luciano Bauman MD, on 10/23/2018 19:12 .S/ CC: ELIZA MASSEY PA-C [id number] PROCEDURES: SPLINT APPLICATION: The patient was verbally consented at bedside prior to splint application. Patient was explained the risks, benefits and alternatives to this procedure. The patient was neurovascularly intact prior to and status post application of the splint. The patient tolerated the procedure well with no complications. Splint type: posterior ankle splint Extremity: left Indication: avulsion fracture of the posterior superior aspect of the calcaneus. MEDICATIONS GIVEN: [place] Patient tolerated medication well with no adverse reactions. Patient reported improvement in pain. MEDICAL DECISION MAKING: This is a 53-year-old female presents ER for concerns of left ankle pain. Patient states she reinjured her ankle today while walking. Patient reports hearing a pop. Vital signs were reviewed. Patient was afebrile. Patient was not hypoxic. Patient was seen here 2 days ago for an ankle injury and x-ray imaging was negative for fracture dislocation. Given the patient reinjured her left ankle, repeat x-rays were obtained. X-ray imaging showed concerns of an avulsion fracture of the posterior superior aspect of the calcaneus. Patient was placed in a posterior ankle splint and advised to be nonweightbearing to the affected extremity. Patient was unable to use crutches. Order for walker was placed. Case management was consulted to assist with getting patient a walker. Doppler ultrasound was negative for DVT. Unable to rule any ligament or tendon injuries at this time. Patient was advised to follow-up with an teaching specialists in the next 1 to 2 days. Referral information provided. At this time, the patient's presentation is most consistent with calcaneus fracture. Low suspicion for ankle dislocation, septic joint, DVT T or compartment syndrome. PRESCRIPTIONS: Tramadol Patient was advised not to take this medication when driving or operating any machinery. In addition, prescription for Narcan was given as patient does have history of benzo use as well as other opiate medications. Patient was advised on the addictive properties of narcotic medications. DISCHARGE: At this time, patient is stable for discharge and outpatient management. I have instructed the patient to follow-up with his/her primary care physician in 1-2 days. I have discussed with the patient the possibility of needing to see an teaching specialists for further workup and imaging if the pain persists. I have instructed the patient to promptly return to the ER for any new or worsening symptoms including increased pain, swelling, redness, warmth or fever. The patient and/or family expressed understanding of and agreement with this plan. All questions were answered. Home care instructions were provided. Disclaimer: Inadvertent spelling and grammatical errors are likely due to EHR/dictation software use and do not reflect on the overall quality of patient care. Also, please note that the electronic time recorded on this note does not necessarily reflect the actual time of the patient encounter. Departure Diagnosis: Primary Impression: Ankle pain Chronicity: chronic Laterality: left Qualified Codes: M25.572 - Pain in left ankle and joints of left foot; G89.29 - Other chronic pain Additional Impression: Calcaneus fracture, left Encounter type: initial encounter Calcaneus location: anterior process Fracture type: closed Fracture alignment: nondisplaced Qualified Codes: S92.025A - Nondisplaced fracture of anterior process of left calcaneus, initial encounter for closed fracture Condition: Fair Referrals: COMM[facility]ITY CLINICS YOU HAVE RECEIVED A MEDICAL SCREENING EXAM AND THE RESULTS INDICATE THAT YOU DO NOT HAVE A CONDITION THAT REQUIRES URGENT TREATMENT IN THE EMERGENCY DEPARTMENT. FURTHER EVALUATION AND TREATMENT OF YOUR CONDITION CAN WAIT UNTIL YOU ARE SEEN IN YOUR DOCTORS OFFICE WITHIN THE NEXT 1-2 DAYS. IT IS YOUR RESPONSIBILITY TO MAKE AN APPOINTMENT FOR FOLOW-UP CARE. IF YOU HAVE A PRIMARY DOCTOR --you should call your primary doctor and schedule an appointment IF YOU DO NOT HAVE A PRIMARY DOCTOR YOU CAN CALL OUR PHYSICIAN REFERRAL HOTLINE AT IF YOU CAN NOT AFFORD TO SEE A PHYSICIAN YOU CAN CHOSE FROM THE FOLLOWING [facility] [address] [facility] [address] [facility] [address] [facility] [address] [facility] [address] [facility]. [facility] [address] [facility]. [facility] YOU HAVE RECEIVED A MEDICAL SCREENING EXAM AND THE RESULTS INDICATE THAT YOU DO NOT HAVE A CONDITION THAT REQUIRES URGENT TREATMENT IN THE EMERGENCY DEPARTMENT. FURTHER EVALUATION AND TREATMENT OF YOUR CONDITION CAN WAIT UNTIL YOU ARE SEEN IN YOUR DOCTORS OFFICE WITHIN THE NEXT 1-2 DAYS. IT IS YOUR RESPONSIBILITY TO MAKE AN APPOINTMENT FOR FOLOW-UP CARE. IF YOU HAVE A PRIMARY DOCTOR --you should call your primary doctor and schedule and appointment IF YOU DO NOT HAVE A PRIMARY DOCTOR YOU CAN CALL OUR PHYSICIAN REFERRAL HOTLINE AT . IF YOU CAN NOT AFFORD TO SEE A PHYSICIAN YOU CAN CHOSE FROM THE FOLLOWING [facility]: [facility] [address] [place] [address] [facility] [address] [place] [address] LOCATED WITHIN [facility] + [facility] [address] [place] [address] Additional Instructions: Follow-up with an teaching specialists for your ongoing ankle pain. Call your primary care doctor TOMORROW for an appointment during the next 1-2 days.See the doctor sooner or return here if your condition worsens before your appointment time. ELIZA MASSEY PA-C October 23, 2018 19:13
[2018-10-23] MEDS ORDERED: TRAM50TA2 PO (19:38)
[2018-10-23] MEDS ORDERED: NALO4SPR NS (19:38)
== END 2018-10-23 22:17 | disposition home or self-care (01) ==
LOC: FTE 17:38
DX: S92.025A Nondisplaced fracture of anterior process of left calcaneus, initial encounter for closed fracture (principal); E11.9 Type 2 diabetes mellitus without complications; I10 Essential (primary) hypertension; J44.9 Chronic obstructive pulmonary disease, unspecified; W01.0XXA Fall on same level from slipping, tripping and stumbling without subsequent striking against object, initial encounter; Y92.9 Unspecified place or not applicable; Z79.4 Long term (current) use of insulin
CPT/HCPCS: 29505; 73610; 93971; Z7502; Z7610

== ENCOUNTER 2018-12-02 21:21 | Emergency (ER) | payer OTHER ==
[~2018-12-02] VITALS: Ht 144.8 cm; Wt 39.4 kg
[~2018-12-02 21:21] MED LIST changes: +NALO4SPR NS
[2018-12-02 21:23] VITALS: Ht 144.8 cm; Wt 39.4 kg
--- NOTE | 2018-12-02 22:45 | ERD ---
ER Documentation Chief Complaint Chief Complaint weakness/dizziness/SAMAYOA, sent by PMD for low hemoglobin HPI Patient is a 53-year-old female with diabetes who presents with "lobe red blood cell count". She was told to go to the ER for transfusion. She had outpatient labs done where she had a hemoglobin of 9.5. She denies bleeding. Said that she feels tired and had shortness of breath and headache. She has been taking iron pills. Upon review of old medical records the patient has multiple visits for various complaints. ROS All systems reviewed and are negative except as per history of present illness. Medications Home Meds Active Scripts Naloxone HCl nasal spray (Narcan 4 mg/0.1 mL nasal) 4 Mg [place], 4 MG NS .Q2MIN PRN for OPIOID OVERDOSE, #2 SPRAY [place] entire contents in one nostril, may repeat in alternate nostril in 2-3 minutes if no or minimal response Prov:ELIZA MASSEY PA-C 10/23/18 Tramadol HCl (Tramadol HCl) 50 Mg Tablet, 50 MG PO Q6 PRN for PAIN, #10 TAB Prov:ELIZA MASSEY PA-C 10/23/18 Acetaminophen* (Tylophen*) 500 Mg Capsule, 1 CAP PO Q6H PRN for PAIN AND OR ELEVATED TEMP, #20 CAP Prov:ELIZA MASSEY PA-C 10/21/18 Cephalexin* (Keflex*) 500 Mg Capsule, 500 MG PO TID for 7 Days, CAP Prov:ELIZA MASSEY PA-C 10/21/18 Phenazopyridine Hcl* (Pyridium*) 100 Mg Tab, 100 MG PO TID PRN for URINARY PAIN, #5 TAB Prov:JUSTINO LESLIE NP 04/28/18 Ciprofloxacin Hcl* (Ciprofloxacin Hcl*) 500 Mg Tablet, 500 MG PO BID for 10 Days, TAB Prov:JUSTINO LESLIE INSOLE PRESSER 04/28/18 Tramadol HCl (Tramadol HCl) 50 Mg Tablet, 50 MG PO Q4 PRN for PAIN, #20 TAB Prov:LUPE LAURENC 03/16/18 Levofloxacin* (Levaquin*) 750 Mg Tablet, 750 MG PO DAILY for 12 Days, #12 TAB Prov:URI GARRIDO 01/14/18 Magnesium Hydroxide* (Roblero' MOM*) 30 Ml Susp, 30 ML PO DAILY PRN for CONSTIPATION, #1 BOTTLE 1 Refill Prov:URI GARRIDO S. 01/14/18 L Acidophil/B Lactis/B Longum (FLORAJEN3 CAPSULE) 460 Mg Capsule, 1 EACH PO BID, #60 CAP 2 Refills Prov:LUIS GARRIDOEEP S. 01/14/18 Reported Medications Ferrous Sulfate* (Ferrous Sulfate*) 325 Mg [place], 325 MG PO DAILY, TAB 01/10/18 Albuterol Sulfate* (Ventolin HFA*) 18 Gm Hfa.aer.ad, 2 PUFF INHALATION Q4H, #1 INHALER 01/10/18 Fluticasone-Vilanterol (Breo Ellipta Inhaler) 100-25 Mcg/Actuation Aer.pow.ba, 1 PUFF INHALATION DAILY, #1 INHALER 01/10/18 Hydrocodone/Acetaminophen ([place] 10-325 Tablet) 1 Each Tablet, 1 EACH PO NEEDED, TAB 01/10/18 Morphine Sulfate* (Ms Contin*) 15 Mg Tablet.sa, 15 MG PO NEEDED, TAB 01/10/18 Pregabalin* (Lyrica*) 75 Mg Capsule, 75 MG PO BID, CAP 01/10/18 Mirtazapine* (Mirtazapine*) 30 Mg Tablet, 30 MG PO DAILY, TAB 01/10/18 Insulin Glargine* (Lantus*) 100 Unit/Ml Soln, 17 UNIT SC BID, #1 VIAL 01/10/18 Alendronate Sodium* (Fosamax*) 70 Mg Tablet, 70 MG PO Q THURS, #4 TAB 01/10/18 Insulin Regular, Human (Humulin R) 100 Unit/1 Ml Vial, 0 IJ SLIDING SCALE, VIAL 01/10/18 Allergies Allergies: Coded Allergies: No Known Allergy (Unverified , 01/10/18) PMhx/Soc History of Surgery: Yes (, Left breast lumpectomy, Toe amputation) Anesthesia Reaction: No Hx Neurological Disorder: No Hx Respiratory Disorders: Yes (COPD, asthma) Hx Cardiac Disorders: Yes (HTN, HCL) Hx Psychiatric Problems: No Hx Miscellaneous Medical Probl: Yes (DM) Hx Alcohol Use: No Hx Substance Use: No Hx Tobacco Use: No Smoking Status: Never smoker FmHx Family History: diabetes Physical Exam Vitals Vital Signs Date Temp Pulse Resp B/P (MAP) Pulse Ox O2 O2 Flow FiO2 Time Delivery Rate 12/02/18 97.8 103 16 121/86 97 21:23 (98) Physical Exam Const: No acute distress Head: Atraumatic Eyes: Normal Conjunctiva ENT: Normal External Ears, Nose and Mouth. Neck: Full range of motion. No meningismus. Resp: Clear to auscultation bilaterally Cardio: Regular rate and rhythm, no murmurs Abd: Soft, non tender, non distended. Normal bowel sounds Skin: No petechiae or rashes Back: No midline or flank tenderness Ext: No cyanosis, or edema Neur: Awake and alert Psych: Normal Mood and Affect Result Diagram: 12/02/18214212/02/182142 Results 24 hrs Laboratory Tests Test 12/02/18 21:43 White Blood Count 9.3 10^3/ul Red Blood Count 3.18 10^6/ul Hemoglobin 9.6 g/dl Hematocrit 28.6 % Mean Corpuscular Volume 89.9 fl Mean Corpuscular Hemoglobin 30.2 pg Mean Corpuscular Hemoglobin Concent 33.6 g/dl Red Cell Distribution Width 13.0 % Platelet Count 232 10^3/UL Mean Platelet Volume 8.9 fl Immature Granulocytes % 0.200 % Neutrophils % 38.7 % Lymphocytes % 46.9 % Monocytes % 7.3 % Eosinophils % 5.3 % Basophils % 1.6 % Nucleated Red Blood Cells % 0.0 /100WBC Immature Granulocytes # 0.020 10^3/ul Neutrophils # 3.6 10^3/ul Lymphocytes # 4.4 10^3/ul Monocytes # 0.7 10^3/ul Eosinophils # 0.5 10^3/ul Basophils # 0.2 10^3/ul Nucleated Red Blood Cells # 0.0 10^3/ul Prothrombin Time 13.0 Sec Prothrombin Time Ratio 1.0 INR International Normalized Ratio 0.97 Activated Partial Thromboplast Time 28.9 Sec Sodium Level 140 mmol/L Potassium Level 3.9 mmol/L Chloride Level 108 mmol/L Carbon Dioxide Level 25 mmol/L Anion Gap 7 Blood Urea Nitrogen 25 mg/dl Creatinine 1.34 mg/dl Est Glomerular Filtrat Rate mL/min 41 mL/min Glucose Level 260 mg/dl Calcium Level 9.0 mg/dl Total Bilirubin 0.5 mg/dl Direct Bilirubin 0.00 mg/dl Indirect Bilirubin 0.5 mg/dl Aspartate Amino Transf (AST/SGOT) 26 IU/L Alanine Aminotransferase (ALT/SGPT) 23 IU/L Alkaline Phosphatase 128 IU/L Troponin I < 0.012 ng/ml Total Protein 7.7 g/dl Albumin 4.1 g/dl Globulin 3.60 g/dl Albumin/Globulin Ratio 1.13 Procedures/MDM EKG read by me: Rate/Rhythm: Regular rate and rhythm at a rate of 91 Intervals: Normal Impression: No evidence of ischemia or arrhythmia Patient is a 53-year-old female presents with anemia. She denies bleeding and her hemoglobin today is 9.6. I told her that I do not usually transfuse unless the patient has a hemoglobin of less than 7. The patient agrees with this plan we will not transfuse her at this time. The patient can return for any worsening symptoms. I believe this is likely chronic anemia she has similar hemoglobins. She denies any bleeding. She was given copies of her laboratory studies and will be discharged. Departure Diagnosis: Primary Impression: Anemia Anemia type: unspecified type Qualified Codes: D64.9 - Anemia, unspecified Condition: Fair Patient Instructions: Anemia Referrals: Your doctor Additional Instructions: Call your primary care doctor TOMORROW for an appointment during the next 1 WEEK.Tell the school secretary that you were referred from this facility.See the doctor sooner or return here if your condition worsens before your appointment time. DESIREE PEREIRA MD Dec 02, 2018 22:45
[2018-12-02 23:03] VITALS: BP 131/74; PULSE 87; RESP 16
== END 2018-12-02 23:05 | disposition home or self-care (01) ==
LOC: E/R 21:21
DX: D64.9 Anemia, unspecified (principal); I10 Essential (primary) hypertension; E11.9 Type 2 diabetes mellitus without complications; J44.1 Chronic obstructive pulmonary disease with (acute) exacerbation; Z79.4 Long term (current) use of insulin
CPT/HCPCS: 36415; 80053; 84484; 85025; 85610; 85730; 86850; 86900; 86901; 93005; Z7502

== ENCOUNTER 2019-01-06 12:46 | Day surgery (SDC) | payer OTHER ==
[2019-01-04 18:08] VITALS: BMI 17.6
[~2019-01-06] VITALS: Ht 142.2 cm; Wt 38.5 kg
[2019-01-06] VITALS (15 sets, daily range): BP systolic 95–129; BP diastolic 46–64; PULSE 77–97; RESP 15–19; Ht 142.2 cm; Wt 38.5 kg
--- NOTE | 2019-01-06 14:19 | PREAC ---
Date/Time of Note Date/Time of Note DATE: 01/06/19 TIME: 14:16 Anesthesia Eval and Record Evaluation Time Pre-Procedure Interview DATE: 01/06/19 TIME: 14:16 Age 53 Sex female NPO: 8 hrs Preoperative diagnosis closed displaced fracture L calcaneus Planned procedure ORIF L calcaneal fracture and surgical repair of L achilles tendon rupture avulsion Past Medical History Past Medical History: Includes Endo: Diabetes, Hypothyroid Pulm: Asthma Heme: Anemia Surgery & Anesthesia Issues No known issue (csection x5, breast surgery, port R chest, R toe amputation) Meds Anticoagulation: No Beta Agap[place] within 24 hr: No Reason Beta Agapito not given: Pt. not on B-Agapito Active Scripts Naloxone HCl nasal spray (Narcan 4 mg/0.1 mL nasal) 4 Mg [place], 4 MG NS .Q2MIN PRN for OPIOID OVERDOSE, #2 SPRAY [place] entire contents in one nostril, may repeat in alternate nostril in 2-3 minutes if no or minimal response Prov:ELIZA MASSEY PA-C 10/23/18 Tramadol HCl (Tramadol HCl) 50 Mg Tablet, 50 MG PO Q6 PRN for PAIN, #10 TAB Prov:ELIZA MASSEY PA-C 10/23/18 Acetaminophen* (Tylophen*) 500 Mg Capsule, 1 CAP PO Q6H PRN for PAIN AND OR ELEVATED TEMP, #20 CAP Prov:ELIZA MASSEY PA-C 10/21/18 Cephalexin* (Keflex*) 500 Mg Capsule, 500 MG PO TID for 7 Days, CAP Prov:ELIZA MASSEY PA-C 10/21/18 Phenazopyridine Hcl* (Pyridium*) 100 Mg Tab, 100 MG PO TID PRN for URINARY PAIN, #5 TAB Prov:JUSTINO LESLIE NP 04/28/18 Ciprofloxacin Hcl* (Ciprofloxacin Hcl*) 500 Mg Tablet, 500 MG PO BID for 10 Days, TAB Prov:JUSTINO LESLIE NP 04/28/18 Tramadol HCl (Tramadol HCl) 50 Mg Tablet, 50 MG PO Q4 PRN for PAIN, #20 TAB Prov:LUPE LAUREN PA-C 03/16/18 Levofloxacin* (Levaquin*) 750 Mg Tablet, 750 MG PO DAILY for 12 Days, #12 TAB Prov:URI GARRIDO S. 01/14/18 Magnesium Hydroxide* (Roblero' MOM*) 30 Ml Susp, 30 ML PO DAILY PRN for CONSTIPATION, #1 BOTTLE 1 Refill Prov:URI GARRIDO S. 01/14/18 L Acidophil/B Lactis/B Longum (FLORAJEN3 CAPSULE) 460 Mg Capsule, 1 EACH PO BID, #60 CAP 2 Refills Prov:URI GARRIDO S. 01/14/18 Reported Medications Ferrous Sulfate* (Ferrous Sulfate*) 325 Mg [place], 325 MG PO DAILY, TAB 01/10/18 Albuterol Sulfate* (Ventolin HFA*) 18 Gm Hfa.aer.ad, 2 PUFF INHALATION Q4H, #1 INHALER 01/10/18 Fluticasone-Vilanterol (Breo Ellipta Inhaler) 100-25 Mcg/Actuation Aer.pow.ba, 1 PUFF INHALATION DAILY, #1 INHALER 01/10/18 Hydrocodone/Acetaminophen ([place] 10-325 Tablet) 1 Each Tablet, 1 EACH PO NEEDED, TAB 01/10/18 Morphine Sulfate* (Ms Contin*) 15 Mg Tablet.sa, 15 MG PO NEEDED, TAB 01/10/18 Pregabalin* (Lyrica*) 75 Mg Capsule, 75 MG PO BID, CAP 01/10/18 Mirtazapine* (Mirtazapine*) 30 Mg Tablet, 30 MG PO DAILY, TAB 01/10/18 Insulin Glargine* (Lantus*) 100 Unit/Ml Soln, 17 UNIT SC BID, #1 VIAL 01/10/18 Alendronate Sodium* (Fosamax*) 70 Mg Tablet, 70 MG PO Q THURS, #4 TAB 01/10/18 Insulin Regular, Human (Humulin R) 100 Unit/1 Ml Vial, 0 IJ SLIDING SCALE, VIAL 01/10/18 Meds reviewed: Yes Allergies Coded Allergies: No Known Allergy (Unverified , 01/04/19) Allergies Reviewed: Yes Labs/Studies Labs Reviewed: Reviewed by anesthesiologist test: N/A Studies: ECG (SR, nml) Pre-procedure Exam Last vitals Vital Signs Date Temp Pulse Resp B/P (MAP) Pulse Ox O2 O2 Flow FiO2 Time Delivery Rate 01/06/19 98.4 97 16 111/60 97 Room Air 14:03 (77) Airway: Adequate mouth opening, Adequate thyromental dist Mallampati: Mallampati II Teeth: Normal Lung: Normal Heart: Normal ASA Physical Status ASA physical status: 3 Emergency: None Planned Anesthetic General/MAC: ETT, LMA Nerve block: Other (L popliteal nerve block) Planned Pain Management Single shot nerve block Pre-operative Attestations Prior to commencing anesthesia and surgery, the patient was re-evaluated, there was verification of: *The patient's identity *The results of appropriate recent lab work and preoperative vital signs *The above evaluation not changing prior to induction *Anesthetic plan, risk benefits, alternative and complications discussed with patient/family; questions answered; patient/family understands, accepts and wishes to proceed. KATIA LR Jan 06, 2019 14:19
[2019-01-06] MEDS ORDERED: ROPIVACAINE 0.2% 20 ML VIAL ONE (14:24)
[2019-01-06] MEDS ORDERED: ROCURONIUM 50 MG INJ ONE (14:24)
[2019-01-06] MEDS ORDERED: FENTAnyl 50 MCG/ML VIAL ONE (14:24)
[2019-01-06] MEDS ORDERED: MIDAZOLAM 1 MG/ML 2 ML INJ ONE (14:24)
[2019-01-06] MEDS ORDERED: PROPOFOL 20 ML ONE (14:24)
[2019-01-06] MEDS ORDERED: CEFAZOLIN 1 GM INJ ONE (14:24)
--- NOTE | 2019-01-06 14:40 | HPN ---
Date/Time of Note Date/Time of Note DATE: 01/06/19 TIME: 14:40 Interval H&P Admission Note Pt. seen H&P reviewed: No system changes VITALIY ROTHMAN DPM Jan 06, 2019 14:40
[2019-01-06] MEDS ORDERED: BUPIVACAINE 0.5% (SDV) 30 ML INJ ONE (14:44)
[2019-01-06] MEDS ORDERED: INSU100I33 SC (14:50)
[2019-01-06] MEDS ORDERED: CETI5SOL PO (14:50)
[2019-01-06] MEDS ORDERED: LEVO50TA7 PO (14:50)
[2019-01-06] MEDS ORDERED: SUGAMMADEX SODIUM 200 MG/2 ML VIAL IV ONE (15:59)
[2019-01-06] MEDS ORDERED: ONDANSETRON 4 MG INJ ONE (15:59)
[2019-01-06] MEDS ORDERED: DEXAMETHASONE 4 MG/ML 5 ML INJ ONE (15:59)
[2019-01-06] MEDS ORDERED: METOCLOPRAMIDE 10 MG INJ ONE (15:59)
[2019-01-06] MEDS ORDERED: DEXTROSE 50% 50 ML SYRINGE ONE (16:36)
[2019-01-06] MEDS ORDERED: DEXTROSE 50% 50 ML SYRINGE IV STA (16:37)
--- NOTE | 2019-01-06 16:37 | OPPN ---
Date/Time of Note Date/Time of Note DATE: 01/06/19 TIME: 16:35 Operative Report Preoperative Diagnosis Calcaneal fracture over five weeks old with avulsion type fracture with dislocation left foot Left foot pain Peripheral vascular disease Diabetes mellitus Peripheral neuropathy Postoperative Diagnosis Calcaneal fracture over five weeks old with avulsion type fracture with dislocation left foot Left foot pain Peripheral vascular disease Diabetes mellitus Peripheral neuropathy Operation/Procedure Performed Open reduction with internal fixation of left calcaneal fracture Posterior splint to left LE Intraoperative use and interpretation of fluoroscopy Surgeon see signature line sales assistant institutional sales none Anesthesia: general Estimated blood loss: minimal Transfusion Required none Specimen None Grafts/Implants none Complications none VITALIY ROTHMAN DPM Jan 06, 2019 16:37
--- NOTE | 2019-01-06 16:37 | OPR ---
Date/Time of Note Date/Time of Note DATE: 01/06/19 TIME: 16:37 Operative Report Procedure Date: Jan 06, 2019 Preoperative Diagnosis Calcaneal fracture over five weeks old with avulsion type fracture with dislocation left foot Left foot pain Peripheral vascular disease Diabetes mellitus Peripheral neuropathy Postoperative Diagnosis Calcaneal fracture over five weeks old with avulsion type fracture with dislocation left foot Left foot pain Peripheral vascular disease Diabetes mellitus Peripheral neuropathy Operation/Procedure Performed Open reduction with internal fixation of left calcaneal fracture Left calcaneal osteotomy Intra operative use and interpretation of fluoroscopy Application of posterior splint to the left foot Surgeon see signature line Hearing Specialist None Anesthesia Type: general Estimated Blood Loss: 0 - 10 ml's Transfusion none Specimen None Grafts/Implants none Complications none Indications This is a pleasant 53 year old patient who has been suffering with left calcaneal fracture with dislocation which is over fiver weeks old now with deformity. Proposed surgery is open reduction with internal fixation of left foot calcaneal fracture with dislocation with osteotomy. Risks and complications of this type of surgery was discussed with patient in great detail. Risks and complications discussed include, but are not limited to, postoperative infection, postoperative pain, chronic pain and disability, hardware failure, malunion, nonunion, delayed union, failure of surgery to correct the problem, need for additional surgical procedures, [toenail changes, onychomycosis, ]deep venous thrombosis, gait disturbance, problems with shoegear, limitation of activities, limb loss and loss of life. Patient understands the discussion and agrees to the procedure. An informed consent was obtained, signed and placed in the chart. No guarantee or warrantee was given or implied as to the outcome of the procedure either in verbal or written form. Procedure Description The patient was seen in the preoperative area. Proposed surgery was discussed with the patient in great detail. Opportunity was given to the patient to ask questions and all questions were answered. Patient acknowledges understanding of the discussion and agrees to the procedure. No guarantee or warranty was given or implied as to the outcome of the procedure either in verbal or written form. Patient was then taken to the operating room and was placed under anesthesia in the [facility]. Then patient was placed in the prone position. A mid leg tourniquet was applied on the left lower extremity. The left foot and ankle was scrubbed, prepped and draped the usual aseptic manner. An Esmarch bandage was utilized to exsanguinate the left foot and the target was inflated to 250 mmHg pressure. Attention was directed to the posterior aspect of the left calcaneus. Intraoperative fluoroscopy was utilized to identify the site of fracture. An inverted L-type incision was made on the lateral aspect of the left heel using a #[address] to the bone. Periosteal dissection was made with care b eing taken to identify and protect vital neurovascular structures. The fracture site was identified the posterior aspect the calcaneus. A curette was used to remove devitalized bone at the fracture site. Since the fracture was over 5 weeks old, some consolidation was present. An osteotome was used to recreate the fracture and mobilize the posterior fragment. This consolidation was released and the fracture site was reduced using a tenaculum. A guidewire for a 7.0 cannulated headless screw was inserted from the posterior aspect of the calcaneus through the fracture site into the body. Once the position was checked with fluoroscopy, a 50 mm screw was inserted for fixation. Bone graft was inserted in the areas of gapping bone. The wound was flushed with copious amounts of sterile normal saline. The reduction was checked and was found to be acceptable. The subcutaneous layer was closed using 3-0 Vicryl suture and the skin was closed using 4-0 Monocryl in simple suture technique. Posterior heel incision was also closed using 4-0 Monocryl in simple suture technique. Postoperative injection was given about 20 cc of 0.5% Marcaine plain. Sterile dressing was applied to the left foot. The pneumatic ankle tourniquet was deflated at this time and prompt hyperemic response was noted to the digits of the left foot. Intraoperative fluoroscopic pictures were obtained. The posterior splint was applied to the left lower extremity. The patient tolerated the procedure and anesthesia well patient was transferred to the recovery with vital signs stable and vascular status intact to the left foot. Patient will be sent home after postoperative monitoring. Patient is to remain nonweightbearing on the left lower extremity. I will see the patient in 1 week in my office for postoperative follow-up. VITALIY ROTHMAN DPM Jan 06, 2019 16:37
--- NOTE | 2019-01-06 16:38 | PAC ---
Date/Time of Note Date/Time of Note DATE: 01/06/19 TIME: 16:38 Post-Anesthesia Notes Post-Anesthesia Note Last documented vital signs Vital Signs Date Temp Pulse Resp B/P (MAP) Pulse Ox O2 O2 Flow FiO2 Time Delivery Rate 01/06/19 98.4 97 16 111/60 97 Room Air 16:33 (77) Activity: WNL Respiratory function: WNL Cardiovascular function: WNL Mental status: Baseline Pain reasonably controlled: Yes Hydration appropriate: Yes Nausea/Vomiting absent: Yes VIN BAUM MD Jan 06, 2019 16:38
[2019-01-06] MEDS ORDERED: HYDROmorphONE 1 MG/5 ML IV SYRINGE IV ONE (16:54)
[2019-01-06] MEDS ORDERED: LABETALOL HCL 20MG INJ IV PRN (17:00)
[2019-01-06] MEDS ORDERED: ONDANSETRON 4 MG INJ IV PRN (17:00)
[2019-01-06] MEDS ORDERED: HYDROmorphONE 1 MG/5 ML IV SYRINGE IV PRN ×2 (17:00)
[2019-01-06] MEDS ORDERED: OXYCODONE/ACETAMINOPHEN (5/325) TAB PO PRN (17:00)
[2019-01-06] MEDS ORDERED: EPHEDrine 25 MG/5 ML SYG IV PRN (17:00)
[2019-01-06] MEDS ORDERED: hydrALAzine 20 MG INJ IV PRN (17:00)
[2019-01-06] MEDS: FENTAnyl 50 MCG/ML VIAL IV PRN ×2 (17:07→17:18)
== END 2019-01-06 18:00 | disposition home or self-care (01) ==
LOC: SDS 12:46
PROVIDERS: ATTEND Podiatrist Foot & Ankle Surgery
DX: S92.002A Unspecified fracture of left calcaneus, initial encounter for closed fracture (principal); I12.9 Hypertensive chronic kidney disease with stage 1 through stage 4 chronic kidney disease, or unspecified chronic kidney disease; N18.2 Chronic kidney disease, stage 2 (mild); E11.51 Type 2 diabetes mellitus with diabetic peripheral angiopathy without gangrene; E11.42 Type 2 diabetes mellitus with diabetic polyneuropathy; E11.22 Type 2 diabetes mellitus with diabetic chronic kidney disease; X58.XXXA Exposure to other specified factors, initial encounter
CPT/HCPCS: 28300; 28415; 73630; 73650; 82962; 84703; J0690; J1100; J1170; J2250; J2405; J2765; J2795; J3010; Z7512; Z7610

== ENCOUNTER 2019-01-11 15:54 | Emergency (ER) | payer OTHER ==
[~2019-01-11] VITALS: Ht 142.2 cm; Wt 38.6 kg
[~2019-01-11 15:54] MED LIST changes: +CETI5SOL PO; +INSU100I33 SC; +LEVO50TA7 PO
[2019-01-11 16:25] VITALS: Ht 142.2 cm; Wt 38.6 kg
--- NOTE | 2019-01-11 23:46 | ERD ---
ER Documentation Chief Complaint Chief Complaint pt c/o ankle pain s/p fall at surgical site x1 day HPI This is a 53-year-old female with a history of multiple medical problems presenting with complaints of left ankle pain after falling off her scooter. She recently had surgery few days ago with Dr. Jacobo Rothman. The surgery was for an ankle injury. She is denying any significant increasing pain but just wants to be sure that everything is okay. No other injuries from the fall today. ROS All systems reviewed and are negative except as per history of present illness. Medications Home Meds Active Scripts Naloxone HCl nasal spray (Narcan 4 mg/0.1 mL nasal) 4 Mg [place], 4 MG NS .Q2MIN PRN for OPIOID OVERDOSE, #2 SPRAY [place] entire contents in one nostril, may repeat in alternate nostril in 2-3 minutes if no or minimal response Prov:ELIZA MASSEY PA-C 10/23/18 Tramadol HCl (Tramadol HCl) 50 Mg Tablet, 50 MG PO Q6 PRN for PAIN, #10 TAB Prov:ELIZA MASSEY PA-C 10/23/18 Acetaminophen* (Tylophen*) 500 Mg Capsule, 1 CAP PO Q6H PRN for PAIN AND OR ELEVATED TEMP, #20 CAP Prov:ELIZA MASSEY PA-C 10/21/18 Cephalexin* (Keflex*) 500 Mg Capsule, 500 MG PO TID for 7 Days, CAP Prov:ELIZA MASSEY PA-C 10/21/18 Phenazopyridine Hcl* (Pyridium*) 100 Mg Tab, 100 MG PO TID PRN for URINARY PAIN, #5 TAB Prov:JUSTINO LESLIE DENTAL COORDINATOR 04/28/18 Ciprofloxacin Hcl* (Ciprofloxacin Hcl*) 500 Mg Tablet, 500 MG PO BID for 10 Days, TAB Prov:JUSTINO LESLIE. DENTAL COORDINATOR 04/28/18 Tramadol HCl (Tramadol HCl) 50 Mg Tablet, 50 MG PO Q4 PRN for PAIN, #20 TAB Prov:LUPE LAUREN PA-C 03/16/18 Levofloxacin* (Levaquin*) 750 Mg Tablet, 750 MG PO DAILY for 12 Days, #12 TAB Prov:URI GARRIDO 01/14/18 Magnesium Hydroxide* (Roblero' MOM*) 30 Ml Susp, 30 ML PO DAILY PRN for CONSTIPATION, #1 BOTTLE 1 Refill Prov:URI GARRIDO S. 01/14/18 L Acidophil/B Lactis/B Longum (FLORAJEN3 CAPSULE) 460 Mg Capsule, 1 EACH PO BID, #60 CAP 2 Refills Prov:URI GARRIDO S. 01/14/18 Reported Medications Cetirizine Hcl* (Cetirizine Hcl*) 5 Mg/5 Ml Solution, 10 MG PO DAILY, #300 ML 01/06/19 Insulin Glargine,Hum.rec.anlog (Basaglar Kwikpen U-100) 100 Unit/1 Ml Insuln.pen, 30 UNIT SC DAILY, EA 01/06/19 Levothyroxine Sodium* (Levothyroxine Sodium*) 50 Mcg Tablet, 50 MCG PO BEFORE BREAKFAST, #30 TAB 01/06/19 Ferrous Sulfate* (Ferrous Sulfate*) 325 Mg Tabec, 325 MG PO DAILY, TAB 01/10/18 Albuterol Sulfate* (Ventolin HFA*) 18 Gm Hfa.aer.ad, 2 PUFF INHALATION Q4H, #1 INHALER 01/10/18 Fluticasone-Vilanterol (Breo Ellipta Inhaler) 100-25 Mcg/Actuation Aer.pow.ba, 1 PUFF INHALATION DAILY, #1 INHALER 01/10/18 Hydrocodone/Acetaminophen ([place] 10-325 Tablet) 1 Each Tablet, 1 EACH PO NEEDED, TAB 01/10/18 Morphine Sulfate* (Ms Contin*) 15 Mg Tablet.sa, 15 MG PO NEEDED, TAB 01/10/18 Pregabalin* (Lyrica*) 75 Mg Capsule, 75 MG PO BID, CAP 01/10/18 Mirtazapine* (Mirtazapine*) 30 Mg Tablet, 30 MG PO DAILY, TAB 01/10/18 Insulin Glargine* (Lantus*) 100 Unit/Ml Soln, 17 UNIT SC BID, #1 VIAL 01/10/18 Alendronate Sodium* (Fosamax*) 70 Mg Tablet, 70 MG PO Q THURS, #4 TAB 01/10/18 Insulin Regular, Human (Humulin R) 100 Unit/1 Ml Vial, 0 IJ SLIDING SCALE, VIAL 01/10/18 Allergies Allergies: Coded Allergies: No Known Allergy (Unverified , 01/04/19) PMhx/Soc History of Surgery: Yes (L BREAST LUMPECTOMY,PORT-A-CATH PLACEMENT,AMPUTATION R TOE,COLONOSCOPY,ENDO, ORIF left ankle) Anesthesia Reaction: No Hx Neurological Disorder: No Hx Respiratory Disorders: No Hx Cardiac Disorders: Yes (HTN) Hx Psychiatric Problems: No Hx Miscellaneous Medical Probl: No Hx Alcohol Use: No Hx Substance Use: No Hx Tobacco Use: No Smoking Status: Never smoker FmHx Family History: No coronary disease Physical Exam Vitals Vital Signs Date Temp Pulse Resp B/P (MAP) Pulse Ox O2 O2 Flow FiO2 Time Delivery Rate 01/12/19 97.9 100 19 117/75 100 Room Air 00:18 (89) 01/12/19 100 18 122/72 100 Room Air 00:00 (89) 01/11/19 102 18 141/69 100 Room Air 22:00 (93) 01/11/19 104 20 138/78 100 Room Air 20:47 (98) 01/11/19 98.6 94 16 103/63 100 16:25 (76) Physical Exam Const: No acute distress Head: Atraumatic Eyes: Normal Conjunctiva ENT: Normal External Ears, Nose and Mouth. Neck: Full range of motion. No meningismus. Resp: Clear to auscultation bilaterally Cardio: Regular rate and rhythm, no murmurs Abd: Soft, non tender, non distended. Normal bowel sounds Skin: No petechiae or rashes Back: No midline or flank tenderness Ext: No cyanosis. Left lower extremity with ankle splint in place. Dressings removed. Posterior ankle surgical incision with sutures in place, well-appearing, no dehiscence, no active bleeding. Mild swelling of the left ankle and foot. No calf tenderness. No evidence of deformities. All other extremities normal to inspection and palpation. 2+ radial pulses bilaterally. 2+ DP and PT pulses bilaterally. Neur: Awake and alert Psych: Normal Mood and Affect Procedures/MDM EMERGENT LABS AND DIAGNOSTIC STUDIES: Radiology Results as interpreted by Radiology below were reviewed by Kitty Funes MD: X-ray left ankle: IMPRESSION: 1. Redemonstration of fixation of an avulsion fracture of the posterior calcaneus at the insertion of the Achilles tendon without definite change in a lignment on lateral view given technical differences. Mildly heterogeneous appearance of the fracture fragment on oblique view when compared to prior ankle radiograph which may be postsurgical, and can be further assessed on follow-up radiographs. 2. Prominent soft tissue swelling in the region of the distal Achilles tendon. Mild soft tissue swelling in the lateral ankle. 3. No definite new fracture identified. CT may be obtained for further evaluation if clinically indicated. 4. Vascular calcifications. Initial Nursing notes reviewed. Previous Medical Records requested via the Electronic Health Record. EMERGENCY DEPARTMENT COURSE / MEDICAL DECISION MAKING: Patient is presenting after mechanical fall with left ankle pain. X-rays showed postsurgical changes, no acute abnormalities. I discussed the patient's case with her surgeon, . He reviewed the imaging. I recommended she follow-up with him in the office for reexamination. At this time, I do not see any evidence of acute injury and I feel the patient is stable for discharge with continued outpatient follow-up. She is already nonweightbearing. Dressings were replaced. New splint was placed. She was neurovascularly intact post splint placement. Patient understands discharge plan. Provided with a copy of the CD of the images as well as the results from today. Patient's blood pressure was elevated (>120/80) but appears stable without evidence of hypertensive emergency or urgency. The patient was counseled about the risks of hypertension and urged to pursue outpatient monitoring and therapy within a week with their primary care physician. Departure Diagnosis: Primary Impression: Injury of ankle, left Encounter type: initial encounter Qualified Codes: S99.912A - Unspecified injury of left ankle, initial encounter Condition: Stable Referrals: JACOBO ROTHMAN DPM Additional Instructions: Your x-rays did not show any new injuries to your ankle. This was discussed with Dr. Rothman. I have provided you with a copy of your Xray. Make an appointment with within the next few days for follow-up. KISHOR FUNES MD Jan 11, 2019 23:46
[2019-01-12 00:18] VITALS: BP 117/75; PULSE 100; RESP 19
== END 2019-01-12 00:18 | disposition home or self-care (01) ==
LOC: E/R 15:54
DX: S99.912A Unspecified injury of left ankle, initial encounter (principal); I10 Essential (primary) hypertension; W18.39XA Other fall on same level, initial encounter; Y92.89 Other specified places as the place of occurrence of the external cause; Z79.4 Long term (current) use of insulin
CPT/HCPCS: 73610; Z7502